=== PATIENT | female | born 1940 | race Caucasian/White ===

== ENCOUNTER 2018-05-20 17:41 | Inpatient (IN) | payer MEDICARE, BC ==
[~2018-05-20] VITALS: Ht 175.3 cm; Wt 77.1 kg
[2018-05-20 18:14] LABS: BASOPHILS % (AUTO) 0.5 % (0.0-2.0); EOSINOPHILS % (AUTO) 0.5 % (0.0-6.0); HEMATOCRIT 44 % (33-45); HEMOGLOBIN 14.8 g/dL (11.5-14.8); LYMPHOCYTES % (AUTO) 11.4 % (20.0-44.0); MEAN CORPUSCULAR HGB CONC 33 g/dl (31.0-36.0); MEAN CORPUSCULAR VOLUME 92 fL (82-100); MONOCYTES # (AUTO) 0.7 /CMM (0.1-1.30); MONOCYTES % (AUTO) 8.1 % (2.0-12.0); NEUTROPHILS # (AUTO) 6.9 /CMM (1.8-8.9); NEUTROPHILS % (AUTO) 79.5 % (43.0-81.0); PLATELET COUNT (AUTO) 199 /CMM (150-450); RED BLOOD CELL COUNT(AUTO) 4.82 MIL/uL (4.0-5.2); WHITE BLOOD COUNT (AUTO) 8.7 K/uL (4.3-11.0)
--- NOTE | 2018-05-20 18:15 | NUR ---
BIBRA39 FROM [facility] FOR MIDSTERNAL CHEST PAIN CHEST PAIN X 2 DAYS NITRO 1 SPRAY GIVEN, PT REFUSED THE ASPIRIN PER REPORT. PT AAOX2, VSS. DENIES CP, SOB, DIZZINESS, N/V @ THIS TIME. PLACED ON HUMAN RESOURCES ASSISTANT MANAGER, SR. PT SEEN & EVAL'D BY DR. HANSEN. WILL CONT TO MONITOR.
[2018-05-20 18:26] LABS: CALCIUM, SERUM 10.2 mg/dL (8.5-10.1); CARBON DIOXIDE 26 mmol/L (21-32); CHLORIDE 109 mmol/L (98-107); CREATININE 1.2 mg/dL (0.6-1.3); GLUCOSE 109 mg/dL (74-106); POTASSIUM 3.3 mmol/L (3.5-5.1); SODIUM SERUM 143 mmol/L (136-145); UREA NITROGEN, BLOOD 30 mg/dL (7-18)
[2018-05-20 18:41] LABS: B-TYPE NATRIURETIC PEPTIDE 556 PG/ML (0-125)
[2018-05-20] MEDS ORDERED: POTASSIUM CHLORIDE 20 MEQ TAB.PRT.SR PO ONE ×3 (18:47→19:00)
--- NOTE | 2018-05-20 19:03 | NUR ---
CALLED [employer] ROVING DEPARTMENT END FINDER WAS PAGED.
--- NOTE | 2018-05-20 19:03 | NUR ---
MEDICATED PER ERMD ORDER. PT ABLE TO SWALLOW CRUSHED MEDS WITHOUT DIFFICULTY. PT STABLE, DENIES CP, SOB, DIZZINESS, N/V @ THIS TIME. FIELD MACHINIST @ BS.
--- NOTE | 2018-05-20 19:04 | NUR ---
CALLED [employer] EXECUTIVE PRODUCER PROMOS WAS PAGED.
--- NOTE | 2018-05-20 19:21 | NUR ---
REPORT REC'D FROM DHIRAJ URBINA FOR FAMILIA.
--- NOTE | 2018-05-20 19:21 | NUR ---
Winnie mosquera in [facility] - 05/20/18 at 1922 by SAVANNAH REPORT ALY FROM DHIRAJ URBINA FOR FAMILIA.
[2018-05-20] MEDS ORDERED: ASPIRIN 81 MG TAB.CHEW PO ONE (20:00)
--- NOTE | 2018-05-20 20:10 | NUR ---
CALLING REPORT TO DHIRAJ SWARTZ - TELE
[2018-05-20] MEDS ORDERED: IV NS 0.9% 1,000 ML IV PRN (20:23)
[2018-05-20] MEDS ORDERED: ACETAMINOPHEN 325 MG TABLET PO PRN (20:30)
[2018-05-20] MEDS ORDERED: ONDANSETRON HCL/PF 4 MG/2 ML VIAL IVP PRN (20:30)
[2018-05-20] MEDS ORDERED: MAG HYDROX/AL HYDROX/SIMETH 30 ML UDC PO PRN (20:30)
[2018-05-20] MEDS ORDERED: Z GUARD REMEDY 2 OZ OINT TP PRN (20:30)
[2018-05-20] MEDS ORDERED: MAGNESIUM HYDROXIDE 30 ML UDC PO PRN (20:30)
[2018-05-20] MEDS ORDERED: MORPHINE SULFATE INJ 2 MG/ML DISP.SYRIN IV PRN (20:30)
[2018-05-20] MEDS ORDERED: HYDROCODONE/APAP 5/325MG 1 EACH TABLET PO PRN (20:30)
[2018-05-20] MEDS ORDERED: ESTR0.5T PO (20:39)
[2018-05-20] MEDS ORDERED: ASPI-605 PO (20:39)
[2018-05-20] MEDS ORDERED: RANI300T4 PO (20:39)
[2018-05-20] MEDS ORDERED: POTA20TA83 PO (20:39)
[2018-05-20] MEDS ORDERED: OMEP20CA10 PO (20:39)
[2018-05-20] MEDS ORDERED: METO25TA6 PO (20:39)
[2018-05-20] MEDS ORDERED: GABA600T12 PO (20:39)
[2018-05-20] MEDS ORDERED: CLOT15CR5 TP (20:39)
[2018-05-20] MEDS ORDERED: BUPR300T54 PO (20:39)
[2018-05-20] MEDS ORDERED: CHOL200026 PO (20:39)
[2018-05-20] MEDS ORDERED: NAPH15DR EACHEYE (20:39)
[2018-05-20] MEDS ORDERED: MEMANTINE PO (20:39)
[2018-05-20] MEDS ORDERED: NITR100C PO (20:39)
[2018-05-20] MEDS ORDERED: TRAM50TA2 PO (20:39)
[2018-05-20] MEDS ORDERED: LORA0.5T PO (20:39)
--- NOTE | 2018-05-20 20:50 | NUR ---
DOCUMENTATION LIAISON OPENING NOTES: RECEIVED PT ON ROOM AIR AND IS TOLERATING WELL. NO SOB NOTED. NO S/S OF DISTRESS. PT NOT VERBALIZING ANY PAIN. WHEN ASKED IF HAVING CHEST PAIN, PT DENIES. PT HAS IV ON L FOREARM#22G AND IS PATENT AND INTACT. PT TO BE STARTED ON IV FLUIDS NS AT 75ML/HR. PT TO BE PLACED ON TELE BOX WELL. BED KEPT IN LOW, LOCKED POSITION, AND SIDE RAILS X 2UP. BED ALARM ACTIVATED. WILL CONTINUE TO MONITOR PT. Addendum: 05/20/18 at 2251 by LUIS ENRIQUE SUÁREZ RN PT ONLY ORIENTED TO NAME AND PLACE.
[2018-05-20 21:00] VITALS: BP 165/71
[2018-05-20] MEDS ORDERED: LORAZEPAM 0.5 MG TABLET PO PRN (21:00)
--- NOTE | 2018-05-20 21:54 | NUR ---
RN NOTES RE: VACCINATION STATUS: NO PAPER WORKS/DOCUMENTATION FROM FACILITY ([facility]) REGARDING FLU VACCINE AND PNEUMOCOCCAL VACCINE. INFORMED ASSIGNED RN TO F/U WITH FACILITY
[2018-05-20] MEDS: ENOXAPARIN SODIUM 40 MG/0.4 ML DISP.SYRIN SQ SCH (21:59)
[2018-05-20] MEDS ORDERED: Medication Not On Formulary EA (Gabapentin 600 MG) PO SCH (22:00)
--- NOTE | 2018-05-20 22:14 | NUR ---
RN NOTES: CONTACTED [facility] SPOKED WITH DHIRAJ SOLITARIO, ASKED ABOUT VACCINATION STATUS, PER DHIRAJ SOLITARIO SHE'S UNSURE AND RECOMMENDS TO CALL IN AM TO F/U DAY RN'S IN THE FACILITY. ALSO DHIRAJ SOLITARIO FAXED A COPY OF PT'S POLST, DATED 01/31/18 AND PER POL PT IS THE POA HERSELF, BUT SINCE PT'S MENTAL STATUS AND CONDITION HAS CHANGED, DHIRAJ SOLITARIO RECOMMENDS TO CALL PT'S BROTHER IN LAW MADDY CASILLAS IN CASE OF ANY EMERGENCY OR MEDICAL DECISION MAKING. MADDY CASILLAS CAN BE REACH AT [phone] (HOME), (CELL). ALL CONVERSATION/COMMUNICATION RELAYED TO ASSIGNED DHIRAJ BALL.
--- NOTE | 2018-05-20 22:16 | NUR ---
RN NOTES: POLST PROVIDED BY FACILITY, ATTACHED TO CHART, BASED ON POLST PT IS DNR, POLST MADE/SIGNED/CREATED LAST 01/31/18, WILL INFORM MD FILLING HAULER WEAVING, PT IS THE POA HERSELF BUT ACCDG TO FACILITY DUE TO PT'S CHANGE IN CONDITION, ITS BEST TO CALL MADDY CASILLAS PT'S BROTHER IN LAW (ALTHOUGH NOT THE PRIMARY/LEGAL DECISION MAKER) IN CASE OF EMERGENCY, AND REASSESSMENT OF THE POLST. METAL TESTER MADE AWARE, PER RECOMMENDATION TO FOLLOW WHAT WAS IN THE POLST AND MADE MD AWARE OF THE EXISTING POLST.
--- NOTE | 2018-05-20 22:18 | NUR ---
RN NOTES: SPOKED WITH ASSIGNED RN LIZZY, ASSIGNED RN WILL NOTIFY TILE CONDUIT LAYER MD REGARDING POLST AND WILL OBTAIN ORDER FOR CODE STATUS.
[2018-05-20] MEDS: GABAPENTIN 300 MG CAPSULE PO SCH ×2 (23:45)
--- NOTE | 2018-05-20 23:47 | NUR ---
FIELD TRAINING AGENT NOTES: GABAPENTIN 600MG LATER ORDER. NON ADMIN 05/20 0000 DOSE PT JUST GOT HERE 05/20 AT 2050PM.
[2018-05-21] VITALS (7 sets, daily range): BP systolic 115–178; BP diastolic 64–87
[2018-05-21] MEDS ORDERED: METOPROLOL TARTRATE 25 MG TABLET PO ONE
--- NOTE | 2018-05-21 02:04 | NUR ---
PUBLIC INFORMATION COORDINATOR NOTES: INFORMED ORGAN TEACHER MEDHAT MILTON THAT HER POLST SAID DNR. PER KATHY MILTON, "THAT'S FINE."
--- NOTE | 2018-05-21 06:41 | NUR ---
RECORDING ARTIST CLOSING NOTES: ALL NEEDS WERE ATTENDED AND ANTICIPATED FOR. PT KEPT CLEAN, DRY, AND COMFORTABLE. NO SOB NOTED. NO S/S OF DISTRESS. PT RESTING IN BED COMFORTABLY AND IS ASLEEP AT THIS TIME. PT NEEDS CONSTANT REORIENTING. PT HAS IV AND IS BEING INFUSED WITH IV NS AT 75ML/HR. BED ALARM ACTIVATED. TELE READING SHOWS SB 53. BED KEPT IN LOW, LOCKED POSITION, AND SIDE RAILS X 2UP. WILL ENDORSE TO AM NURSE FOR FAMILIA. Addendum: 05/21/18 at 0647 by LUIS ENRIQUE SUÁREZ RN PT REFUSING TO HAVE BLOOD DRAWN AT THIS TIME. CEO & FOUNDER WILL COME BACK AT A LATER TIME.
[2018-05-21] MEDS ORDERED: OMEPRAZOLE 20 MG CAPSULE.DR PO SCH (07:30)
--- NOTE | 2018-05-21 07:30 | NUR ---
event representative Opening Note Patient awake, resting in bed. No acute distress, SOB or complaints of chest pain. Alert and oriented x2, able to verbalize needs. Constant reorientation needed. classroom monitor, sinus bradycardia at 47 bpm. Respirations even and unlabored on room air. Aspirations precautions in place. Peripheral IV to the left forearm 22 gauge, intact, patent and infusing NS at 75 mL/hr. Current weight 168 lbs., strict I & Os. Fall and Safety precautions in place: bed in lowest and locked position, bed alarm on, side rails up x2, call light and personal possessions within reach. Oriented to safety measures and use of call light, verbalized understanding. Will continue to monitor and intervene as needed.
[2018-05-21] MEDS: ESTRADIOL 1 MG TABLET PO SCH (08:38)
[2018-05-21] MEDS: NAPHAZOLINE HCL/PHENIR MAL 15 ML BOTTLE EACHEYE SCH (08:38)
[2018-05-21] MEDS: BUPROPION XL 150 MG TAB.ER.24 PO SCH (08:39)
[2018-05-21] MEDS: CHOLECALCIFEROL 1,000 UNIT TABLET (VIT D3) PO SCH (08:39)
[2018-05-21] MEDS: ATORVASTATIN 10 MG TABLET PO SCH (08:39)
[2018-05-21] MEDS: POTASSIUM CHLORIDE 20 MEQ TAB.PRT.SR PO SCH ×3 (08:40→10:00)
[2018-05-21] MEDS: PANTOPRAZOLE 40 MG TABLET.DR PO SCH (08:40)
[2018-05-21] MEDS: ASPIRIN EC 81 MG TABLET.DR PO SCH (08:40)
[2018-05-21] MEDS: METOPROLOL TARTRATE 25 MG TABLET PO SCH ×2 (08:40→17:06)
[2018-05-21] MEDS: CLOTRIMAZOLE/BETAMETASONE DIPROPIONATE 15 GM TUBE TP SCH ×2 (08:41→17:06)
[2018-05-21] MEDS: LOSARTAN POTASSIUM 50 MG TABLET PO SCH ×2 (08:41→21:00)
[2018-05-21] MEDS: MEMANTINE HCL 5 MG TABLET PO SCH ×2 (08:41→17:06)
[2018-05-21] MEDS ORDERED: BUPROPION HCL PO SCH (09:00)
[2018-05-21] MEDS ORDERED: Medication Not On Formulary EA (Estradiol 0.5 MG) PO SCH (09:00)
--- NOTE | 2018-05-21 09:00 | NUR ---
Patient refused breakfast this AM. Encouraged PO intake of water and cranberry juice.
[2018-05-21] MEDS: IV NS 0.9% 1,000 ML IV PRN ×2 (09:23→17:16)
--- NOTE | 2018-05-21 13:00 | NUR ---
Patient refused lab blood draw. Educated patient about risks and benefits regarding blood work and lab; refused three time. Will attempt again later this afternoon.
--- NOTE | 2018-05-21 16:00 | NUR ---
Patient refusing to be turned and repositioned per protocol for skin integrity and limb offloading. Educated patient verbally three times regarding risks and benefits of repositioning for to maintain skin, patient able to tolerate some turning. Refused every 2 hours but turned and repositioned as tolerated. Left side is painful for her. Will endorse to linen supervisor.
[2018-05-21] MEDS ORDERED: hydrALAZINE HCL 25 MG TABLET PO PRN (16:30)
--- NOTE | 2018-05-21 18:15 | NUR ---
MS RN Opening Note Patient asleep, resting in bed. No acute distress, SOB or complaints of chest pain. Alert and oriented x 1-2, able to verbalize needs. Constant reorientation needed. Respirations even and unlabored on room air. Aspirations precautions in place. Peripheral IV to the left forearm 22 gauge, intact, patent and infusing NS at 125 mL/hr. Current weight 168 lbs., strict I & Os. Urine x3, BM x 1 this shift. Fall and Safety precautions in place: bed in lowest and locked position, bed alarm on, side rails up x2, call light and personal possessions within reach. Oriented to safety measures and use of call light, verbalized understanding and demonstrated use. Will endorse to police shift commander RN for continuity of care.
--- NOTE | 2018-05-21 19:00 | NUR ---
MS/RN OPENING NOTES PT RECEIVED ASLEEP, OPENS EYES TO NAME/LIGHT TOUCH. ON ROOM AIR, BREATHING EVEN AND UNLABORED. NON VERBAL AT THIS TIME, NODS TO YES/NO QUESTIONS. IV TO LFA PATENT AND INTACT RUNNING IVF ORDERED. HOB ELEVATED. BED IN LOW/LOCKED POSITION WITH CALL LIGHT IN REACH, UPPER SIDE RAILS IN PLACE. WILL CONTINUE TO MONITOR
[2018-05-21] MEDS: ENOXAPARIN SODIUM 40 MG/0.4 ML DISP.SYRIN SQ SCH (20:30)
--- NOTE | 2018-05-21 20:41 | NUR ---
MS/RN NOTES PT POSITIVE FOR MRSA NARES. MOVED TO ROOM 329 IN STABLE. ON ISOLATION PRECAUTIONS. PT REFUSING LAB DRAW DESPITE EDUCATION RISKS/BENEFITS X3. ASKED IF WE CAN TRY AGAIN IN AN HOUR, PT NODDED HEAD NO. ASKED IF WE COULD DRAW LAB IN THE MORNING, PT NODDED YES.
[2018-05-21] MEDS ORDERED: FAMOTIDINE (20 MG) 20 MG TABLET PO SCH (21:00)
[2018-05-21] MEDS: GABAPENTIN 300 MG CAPSULE PO SCH (21:24)
--- NOTE | 2018-05-21 21:31 | NUR ---
MS/RN NOTES PT REFUSED LOVENOX DESPITE EDUCATION OF RISKS/BENEFITS X3. KEEPS STATING SHE "DOES NOT WANT IT". LOSARTAN HELD, BP 127/66, HR 48. GABAPENTIN ADMINISTERED ORDERED
[2018-05-22] MEDS: IV NS 0.9% 1,000 ML IV PRN ×2 (04:27→18:31)
--- NOTE | 2018-05-22 06:45 | NUR ---
MS/RN CLOSING NOTES PT WITH HOB ELEVATED. A/OX2. WITH EYES OPEN. ON ROOM AIR, BREATHING EVEN AND UNLABORED. NO S/S OF SOB OR PAIN AT THIS TIME. IV TO LFA PATENT AND INTACT RUNNING IVF ORDERED. TURNED/REPOSITIONED Q2H. HEELS OFFLOADED. ALL NEEDS MET. PT REFUSED LAB DRAW THIS AM DESPITE EDUCATION X3. REFUSED SOME MEDICATIONS LAST NIGHT. NO C/O CHEST PAIN, N/V OR SOB DURING SHIFT. BED REMAINS IN LOW/LOCKED POSITION WITH CALL LIGHT IN REACH, UPPER SIDE RAILS IN PLACE. NO SIGNIFICANT CHANGES OVERNIGHT. KEPT COMFORTABLE. ASPIRATION AND ISOLATION PRECAUTIONS IMPLEMENTED. WILL ENDORSE TO DAY SHIFT RN
--- NOTE | 2018-05-22 07:10 | NUR ---
MS/RN OPENING NOTE THE PATIENT IS RECEIVED AWAKE IN BED. ALERT AND ORIENTED TO SELF AND PLACE. REORIENTATION PROVIDED. THE PATIENT DENIES PAIN AT THIS TIME. IN ROOM AIR AND DENIES SOB. RESPIRATION REGULAR AND UNLABORED. LFA G 22 PATENT AND NORMAL SALINE INFUSING AT 125L/HR. NO S/S INFILTRATION NOTED. BED LOW AND LOCKED. SIDE RAILS UP X3. CALL LIGHT WITHIN REACH. WILL CONTINUE TO MONITOR.
[2018-05-22 08:00] VITALS: BP 115/66
[2018-05-22] MEDS: ATORVASTATIN 10 MG TABLET PO SCH (08:31)
[2018-05-22] MEDS: PANTOPRAZOLE 40 MG TABLET.DR PO SCH (08:31)
[2018-05-22] MEDS: MEMANTINE HCL 5 MG TABLET PO SCH ×2 (08:31→17:12)
[2018-05-22] MEDS: BUPROPION XL 150 MG TAB.ER.24 PO SCH (08:31)
[2018-05-22] MEDS: LOSARTAN POTASSIUM 50 MG TABLET PO SCH ×2 (08:32→21:25)
[2018-05-22] MEDS: METOPROLOL TARTRATE 25 MG TABLET PO SCH ×2 (08:32→17:12)
[2018-05-22] MEDS: CHOLECALCIFEROL 1,000 UNIT TABLET (VIT D3) PO SCH (08:33)
[2018-05-22] MEDS: ASPIRIN EC 81 MG TABLET.DR PO SCH (08:33)
[2018-05-22] MEDS: ESTRADIOL 1 MG TABLET PO SCH (08:34)
[2018-05-22] MEDS: CLOTRIMAZOLE/BETAMETASONE DIPROPIONATE 15 GM TUBE TP SCH ×2 (10:22→17:13)
[2018-05-22] MEDS: NAPHAZOLINE HCL/PHENIR MAL 15 ML BOTTLE EACHEYE SCH (10:22)
[2018-05-22] MEDS: MUPIROCIN OINT 2% 22 GM TUBE SCH ×2 (10:54→21:27)
[2018-05-22] MEDS ORDERED: MUPI1OIN BNOSTRILS (14:49)
[2018-05-22 16:00] VITALS: BP 148/77
--- NOTE | 2018-05-22 18:16 | NUR ---
MS/RN CLOSING NOTE THE PATIENT ALERT AND ORIENTED X2. IN ROOM AIR AND OXYGEN SATURATION IS AT 96%. DENIES SOB. DENIES PAIN. LFA G 22 PATENT AND NORMAL SALINE INFUSING AT 125ML/HR. NO S/S INFILTRATION NOTED. PATIENT INCONTINENT. GOOD AND GENTLE CARE PROVIDED. TURNED AND REPOSITIONED. BED LOW AND LOCKED. SIDE RAILS UP X3. CALL LIGHT WITHIN REACH. WILL ENDORSE TO CUTTER HAND.
--- NOTE | 2018-05-22 19:30 | NUR ---
RN MS OPENING NOTES RECEIVED PATIENT IN BED AWAKE, ALERT AND ORIENTED X2, VERBALLY RESPONSIVE, ABLE TO MAKE NEEDS KNOWN. BREATHING EVEN AND UNLABORED. NO SOB NOTED.TOLERATING ROOM AIR. DENIES AND PAIN OR DISCOMFORT. NO FACIAL GRIMACING. IV ON LEFT FOREARM INTACT AND PATENT. SKIN DRY AND WARM TO TOUCH. ALL OTHER NEEDS ATTENDED TO. ISOLATION IN PLACE FOR MRSA OF THE NARES. SAFETY MEASURES IN PLACE. CALL LIGHT WITHIN REACH. WILL CONTINUE TO MONITOR.
[2018-05-22 20:49] VITALS: BP 145/66
[2018-05-22] MEDS: GABAPENTIN 300 MG CAPSULE PO SCH (21:25)
[2018-05-22] MEDS: ENOXAPARIN SODIUM 40 MG/0.4 ML DISP.SYRIN SQ SCH (21:26)
--- NOTE | 2018-05-23 06:25 | NUR ---
RN MS NOTES PATIENT REFUSED BLOOD DRAW. EXPLAINED RISKS AND BENEFITS BUT STILL REFUSED. PER PATIENT IT GIVES HER A LOT OF PAIN. OFFERED TO GIVE PAIN MEDICATION AFTERWARDS BUT PATIENT STILL REFUSED. WILL CONTINUE TO MONITOR.
--- NOTE | 2018-05-23 06:28 | NUR ---
RN MS CLOSING NOTES PATIENT RESTING IN BED. NO ACUTE CHANGES THROUGHOUT SHIFT. BREATHING EVEN AND UNLABORED. NO SOB NOTED. TOLERATING ROOM AIR. NO COMPLAINTS OF PAIN OR DISCOMFORT. NO FACIAL GRIMACING. IV ON LEFT FOREARM INTACT AND PATENT. SKIN DRY AND WARM TO TOUCH. KEPT CLEAN DRY AND COMFORTABLE. ALL OTHER NEEDS ATTENDED TO. ISOLATION IN PLACE FOR MRSA OF THE NARES. SAFETY MEASURES IN PLACE. CALL LIGHT WITHIN REACH. WILL ENDORSE TO ONCOMING NURSE FOR CONTINUITY OF CARE.
--- NOTE | 2018-05-23 07:36 | NUR ---
RN OPENING NOTES PT WAS RECEIVED IN BED AT LOWEST AND LOCKED POSITION WITH SIDE RAILS UP X2, A/O X2, BREATHING EVEN AND UNLABORED ON RA, NO S/S OF PAIN OR DISTRESS CURRENTLY NOTED, WAS INFORMED BY BRAND STRATEGY MANAGER RN THAT PT REFUSED BLOOD DRAW, IV IS PATENT AND INTACT, SAFETY PRECAUTIONS IN PLACE, CALL LIGHT WITHIN REACH, WILL MONITOR ACCORDINGLY
[2018-05-23 08:00] VITALS: BP 155/90
[2018-05-23] MEDS: ASPIRIN EC 81 MG TABLET.DR PO SCH (08:36)
[2018-05-23] MEDS: ATORVASTATIN 10 MG TABLET PO SCH (08:36)
[2018-05-23] MEDS: CHOLECALCIFEROL 1,000 UNIT TABLET (VIT D3) PO SCH (08:36)
[2018-05-23] MEDS: BUPROPION XL 150 MG TAB.ER.24 PO SCH (08:36)
[2018-05-23] MEDS: MEMANTINE HCL 5 MG TABLET PO SCH (08:36)
[2018-05-23] MEDS: LOSARTAN POTASSIUM 50 MG TABLET PO SCH (08:37)
[2018-05-23] MEDS: METOPROLOL TARTRATE 25 MG TABLET PO SCH (08:37)
[2018-05-23] MEDS: PANTOPRAZOLE 40 MG TABLET.DR PO SCH (08:41)
[2018-05-23] MEDS: ESTRADIOL 1 MG TABLET PO SCH (08:41)
[2018-05-23] MEDS: CLOTRIMAZOLE/BETAMETASONE DIPROPIONATE 15 GM TUBE TP SCH (08:49)
[2018-05-23] MEDS: NAPHAZOLINE HCL/PHENIR MAL 15 ML BOTTLE EACHEYE SCH (08:49)
[2018-05-23] MEDS: MUPIROCIN OINT 2% 22 GM TUBE SCH (08:50)
--- NOTE | 2018-05-23 11:52 | NUR ---
RN NOTES [facility] WAS CALLED AT THIS TIME IN ORDER TO GIVE REPORT, THE NURSE WAS NOT AVAILABLE AT THAT TIME SO THEY SAID SHE WOULD CALL BACK LATER
--- NOTE | 2018-05-23 12:08 | NUR ---
RN NOTES REPORT GIVEN TO LUCILLE AT [facility] AT THIS TIME
--- NOTE | 2018-05-23 12:19 | NUR ---
WOUND CARE CONSULT: PT PRESENTS WITH INCONTINENCE AND RED RASH TO GROIN, PERINEAL AREAS, PRESENT ON ADMISSION. RECOMMENDATIONS MADE FOR SKIN PROTECTION AND CARE. DISCUSSED WITH NURSING STAFF. CURRENT LOLI SCORE IS 14. WILL SEE PRN. AVALOS IN AGREEMENT WITH PLAN OF CARE. Addendum: 05/23/18 at 1221 by JULIA TUTTLE WNDNU Amended: Links added.
[2018-05-23 14:39] VITALS: BP 163/83
--- NOTE | 2018-05-23 15:05 | NUR ---
DISCHARGE NOTES PT AT THIS TIME WAS TAKEN BY EMT TO [facility] VIA AMBULANCE IN MEDICALLY STABLE CONDITION, REPORT WAS GIVEN TO LUCILLE AT [facility] AND EMT, IV AND ID BAND WERE REMOVED, D/C PAPERWORK AND BELONGINGS WERE SIGNED, BELONGINGS WERE HANDED TO EMT. ALL PAPERWORK AND EXITCARE WAS DISCUSSED AND PROVIDED. SJKIN DOCUMENTATION WAS DONE AND NOTED. ALL NEEDS WERE ATTENDED TO DURING THEIR STAY. ETA 15 MIN
[2018-05-23] MEDS ORDERED: CLOTRIMAZOLE 1% 15 GM TUBE TP SCH (17:00)
== END 2018-05-23 15:00 | DRG 391 ==
LOC: ER 17:45 → TELE 20:20 → MED 05-21 08:36
PROVIDERS: ADMIT Nurse Practitioner Acute Care; ATTEND Internal Medicine
DX: K21.9 Gastro-esophageal reflux disease without esophagitis (principal); N17.0 Acute kidney failure with tubular necrosis; I69.359 Hemiplegia and hemiparesis following cerebral infarction affecting unspecified side; E87.6 Hypokalemia; E83.52 Hypercalcemia; I10 Essential (primary) hypertension; F32.9 Major depressive disorder, single episode, unspecified; F03.90 Unspecified dementia, unspecified severity, without behavioral disturbance, psychotic disturbance, mood disturbance, and anxiety
CPT/HCPCS: 36415; 71045-TC; 80048-TC; 83880; 84484-TC; 85025-TC; 85730-TC; 87081-TC; 93307-TC; G0378; J1650; J2405; J7030

== ENCOUNTER → 2018-11-09 | Emergency (ER) | payer MEDICARE, BC ==
[~2018-11-09] VITALS: Ht 165.1 cm; Wt 86.2 kg
[~2018-11-09] MED LIST: ASPI-605 PO; BISACODYL SUPP (10 MG) 10 MG/SUPP.RECT SUPP.RECT RC ONE; BUPR300T54 PO; CHOL200026 PO; CLOT15CR5 TP; CT SWABBABLE VALVE TRANS SET 1 EA INFUS.SET MC ONE; ESTR0.5T PO; GABA600T12 PO; IOHEXOL-300 100 ML VIAL IV ONE; IV NS 0.9% 1,000 ML BAG IV ONE; IV NS 0.9% 250 ML IV ONE; LIDOCAINE VISCOUS 2% UD 15 ML UDC MM ONE; LIDOCAINE VISCOUS 2% UD 15 ML UDC ONE; LORA0.5T PO; MAGNESIUM CITRATE 296 ML BOTTLE ONE; MAGNESIUM CITRATE 296 ML BOTTLE PO ONE; MEMANTINE PO; METO25TA6 PO; MORPHINE SULFATE INJ 2 MG/ML DISP.SYRIN IV ONE; MORPHINE SULFATE INJ 4 MG/ML DISP.SYRIN ONE; MUPI1OIN BNOSTRILS; NAPH15DR EACHEYE; NITR100C PO; OMEP20CA11 PO; POTA20TA83 PO; RANI300T4 PO; TRAM50TA2 PO
--- NOTE | 2018-11-09 09:30 | NUR ---
BIBRA39 FRM FAY C/O RECTAL PAIN SINCE YESTERDAY. , CONSTIPATED PER EMS REPORT. TO ER BED 5, HOOKED TO MONITOR, CHANGED TO GOWN, PROVIDED W WARM BLANKET, PT AOX2 , NOT IN DISTRESS, CAREGIVER AT BEDSIDE, AWAITING MD FERRERA
--- NOTE | 2018-11-09 09:37 | NUR ---
DR GOETZ AT BEDSIDE
[2018-11-09 10:09] LABS: BASOPHILS # (AUTO) 0.1 /CMM (0.0-0.2); BASOPHILS % (AUTO) 0.5 % (0.0-2.0); EOSINOPHILS % (AUTO) 0.9 % (0.0-6.0); HEMATOCRIT 44 % (33-45); HEMOGLOBIN 14.5 g/dL (11.5-14.8); LYMPHOCYTES # (AUTO) 1.2 /CMM (0.8-4.8); MEAN CORPUSCULAR HGB CONC 33 g/dl (31.0-36.0); MEAN CORPUSCULAR VOLUME 95 fL (82-100); MONOCYTES % (AUTO) 8.1 % (2.0-12.0); NEUTROPHILS # (AUTO) 9.6 /CMM (1.8-8.9); NEUTROPHILS % (AUTO) 80.5 % (43.0-81.0); PLATELET COUNT (AUTO) 169 /CMM (150-450); RED BLOOD CELL COUNT(AUTO) 4.63 MIL/uL (4.0-5.2); WHITE BLOOD COUNT (AUTO) 11.9 K/uL (4.3-11.0)
[2018-11-09 10:19] LABS: CARBON DIOXIDE 22 mmol/L (21-32); CHLORIDE 109 mmol/L (98-107); CREATININE 1.3 mg/dL (0.6-1.3); GLUCOSE 98 mg/dL (74-106); POTASSIUM 3.9 mmol/L (3.5-5.1); SODIUM SERUM 142 mmol/L (136-145); UREA NITROGEN, BLOOD 32 mg/dL (7-18)
[2018-11-09 10:26] LABS: ALANINE AMINOTRANSFERASE 27 U/L (12-78); ALKALINE PHOSPHATASE 90 U/L (46-116); ASPARTATE AMINOTRANSFERASE 14 U/L (15-37); BILIRUBIN,DIRECT 0.1 mg/dL (0.0-0.2); BILIRUBIN,TOTAL 0.5 mg/dL (0.2-1.0); CALCIUM, SERUM 9.7 mg/dL (8.5-10.1); LIPASE 133 U/L (73-393); TOTAL PROTEIN, SERUM 6.3 g/dL (6.4-8.2)
--- NOTE | 2018-11-09 11:48 | NUR ---
PT NOT ABLE TO DEFACATE. MADE MD AWARE. WILL CONTINUE TO MONITOR.
--- NOTE | 2018-11-09 14:36 | NUR ---
PT NOT ABLE TO DEFACATE. MADE MD AWARE. WILL CONTINUE TO MONITOR.
--- NOTE | 2018-11-09 14:54 | NUR ---
RECEIVED VERBAL ORDER FROM DR GOETZ FOR LIDOCAINE 2% VISCOUS TO APPLY AT ANUS AREA AND MORPHINE 4MG IVP FOR MANUAL FECAL DISIMPACTION.
--- NOTE | 2018-11-09 15:05 | NUR ---
DR WIGGINS AT BEDSIDE FOR MANUAL FECAL DISIMPACTION.
[2018-11-09 15:13] VITALS: BP 139/98
--- NOTE | 2018-11-09 15:18 | NUR ---
REPORT GIVEN TO LAYA HEARN OF [facility]
--- NOTE | 2018-11-09 15:25 | NUR ---
SPOKE TO AYAH FROM [facility], S TRANSPORT ARRANGED WITH AN ETA OF 1700, TRIP NUMBER [id number].
--- NOTE | 2018-11-09 17:18 | NUR ---
IV removed. Catheter intact and site benign. Pressure and 4x4 applied to site. No bleeding noted. Patient discharged to AMBUL[facility] UNIT 312 in stable condition GOING TO [facility]. CAREGIVER AT BEDSIDE. Written and verbal after care instructions given. Patient AND EMT verbalizes understanding of instruction.
== END | disposition home or self-care (01) ==
LOC: ER 09:27
DX: K56.41 Fecal impaction (principal); I10 Essential (primary) hypertension; E78.00 Pure hypercholesterolemia, unspecified; K21.9 Gastro-esophageal reflux disease without esophagitis; F03.90 Unspecified dementia, unspecified severity, without behavioral disturbance, psychotic disturbance, mood disturbance, and anxiety; Z86.73 Personal history of transient ischemic attack (TIA), and cerebral infarction without residual deficits; Z90.89 Acquired absence of other organs; Z90.710 Acquired absence of both cervix and uterus; Z88.0 Allergy status to penicillin; Z88.2 Allergy status to sulfonamides; Z88.1 Allergy status to other antibiotic agents; Z88.8 Allergy status to other drugs, medicaments and biological substances; Z79.899 Other long term (current) drug therapy; Z79.82 Long term (current) use of aspirin
CPT/HCPCS: 36415; 74176; 80048; 80076; 83605 ×2; 83690; 85025; 96374; 99284; J2270; J7030; J7050; Q9967

== ENCOUNTER 2019-01-03 11:46 | Inpatient (IN) | payer MEDICARE, BC ==
[~2019-01-03] VITALS: Ht 167.6 cm; Wt 82.6 kg
[~2019-01-03 11:46] MED LIST changes: -BISACODYL SUPP (10 MG) 10 MG/SUPP.RECT SUPP.RECT RC ONE; -CT SWABBABLE VALVE TRANS SET 1 EA INFUS.SET MC ONE; -IOHEXOL-300 100 ML VIAL IV ONE; -IV NS 0.9% 1,000 ML BAG IV ONE; -IV NS 0.9% 250 ML IV ONE; -LIDOCAINE VISCOUS 2% UD 15 ML UDC MM ONE; -LIDOCAINE VISCOUS 2% UD 15 ML UDC ONE; -MAGNESIUM CITRATE 296 ML BOTTLE ONE; -MAGNESIUM CITRATE 296 ML BOTTLE PO ONE; -MORPHINE SULFATE INJ 2 MG/ML DISP.SYRIN IV ONE; -MORPHINE SULFATE INJ 4 MG/ML DISP.SYRIN ONE
--- NOTE | 2019-01-03 12:00 | NUR ---
WILMA MATTSON [address] [facility], "TROWING UP BLOOD SINCE YESTERDAY". TO ER BED 8, PATIENT AOx4, BREATHING EVEN AND UNLABORED, HOOKED TO MONITOR, NOTED TACHYCARDIA AT 126BPM, CHANGED TO GOWN, PROVIDED W WARM BLANKET, AWAITING MD FERRERA
--- NOTE | 2019-01-03 12:02 | NUR ---
DR ROMERO AT BEDSIDE
[2019-01-03] MEDS ORDERED: ONDANSETRON HCL/PF 4 MG/2 ML VIAL ONE (12:15)
[2019-01-03 12:16] LABS: BASOPHILS % (AUTO) 0.1 % (0.0-2.0); HEMATOCRIT 49 % (33-45); HEMOGLOBIN 16.3 g/dL (11.5-14.8); LYMPHOCYTES # (AUTO) 0.6 /CMM (0.8-4.8); LYMPHOCYTES % (AUTO) 5.6 % (20.0-44.0); MEAN CORPUSCULAR HGB CONC 33 g/dl (31.0-36.0); MEAN CORPUSCULAR VOLUME 92 fL (82-100); MONOCYTES # (AUTO) 0.7 /CMM (0.1-1.30); NEUTROPHILS # (AUTO) 10.1 /CMM (1.8-8.9); NEUTROPHILS % (AUTO) 88.3 % (43.0-81.0); PLATELET COUNT (AUTO) 225 /CMM (150-450); WHITE BLOOD COUNT (AUTO) 11.4 K/uL (4.3-11.0)
[2019-01-03 12:22] LABS: CALCIUM, SERUM 10.2 mg/dL (8.5-10.1); CARBON DIOXIDE 25 mmol/L (21-32); CHLORIDE 103 mmol/L (98-107); CREATININE 1.7 mg/dL (0.6-1.3); GLUCOSE 155 mg/dL (74-106); POTASSIUM 3.9 mmol/L (3.5-5.1); SODIUM SERUM 143 mmol/L (136-145); UREA NITROGEN, BLOOD 38 mg/dL (7-18)
[2019-01-03 12:28] LABS: ALANINE AMINOTRANSFERASE 24 U/L (12-78); ALBUMIN 3.2 g/dL (3.4-5.0); ALKALINE PHOSPHATASE 90 U/L (46-116); ASPARTATE AMINOTRANSFERASE 14 U/L (15-37); BILIRUBIN,DIRECT 0.2 mg/dL (0.0-0.2); BILIRUBIN,TOTAL 0.8 mg/dL (0.2-1.0); LIPASE 73 U/L (73-393); TOTAL PROTEIN, SERUM 6.8 g/dL (6.4-8.2)
[2019-01-03] MEDS ORDERED: IV NS 0.9% 1,000 ML BAG IV ONE ×2 (12:30→13:00)
[2019-01-03] MEDS ORDERED: ONDANSETRON HCL/PF 4 MG/2 ML VIAL IVP ONE (12:30)
[2019-01-03] MEDS ORDERED: BENZ-13 PO (12:51)
[2019-01-03] MEDS ORDERED: BISM262T14 PO (12:51)
[2019-01-03] MEDS ORDERED: LORA0.5T PO (12:51)
[2019-01-03] MEDS ORDERED: LOSA1TAB39 PO (12:51)
[2019-01-03] MEDS ORDERED: TEMA15CA PO (12:51)
[2019-01-03] MEDS ORDERED: NA P133E RC (12:51)
[2019-01-03] MEDS ORDERED: CLON0.1T PO (12:51)
[2019-01-03] MEDS ORDERED: ATOR40TA PO (12:51)
[2019-01-03] MEDS ORDERED: TRAM50TA2 PO (12:51)
[2019-01-03] MEDS ORDERED: CEFEPIME 1 GM in IV D5W 50 ML IV ONE (13:00)
[2019-01-03] MEDS ORDERED: VANCOMYCIN 1 GM in IV D5W 250 ML IV ONE (13:00)
--- NOTE | 2019-01-03 13:10 | NUR ---
VERIFIED W DR ROMERO OF MAXIPIME ORDER PATIENT IS ALLERGIC TO PENICILLIN, SAID IT IS OK TO CONTINUE GIVING MAXIPIME. PHARMACY MADE AWARE
--- NOTE | 2019-01-03 13:16 | NUR ---
GRACE BOYD DNP AT BEDSIDE
[2019-01-03] MEDS ORDERED: IV NS 0.9% 1,000 ML IV PRN (13:18)
[2019-01-03 13:20] LABS: B-TYPE NATRIURETIC PEPTIDE 1403 PG/ML (0-125)
[2019-01-03] MEDS ORDERED: MORPHINE SULFATE INJ 2 MG/ML DISP.SYRIN IV PRN (13:30)
[2019-01-03] MEDS ORDERED: MAG HYDROX/AL HYDROX/SIMETH 30 ML UDC PO PRN (13:30)
[2019-01-03] MEDS ORDERED: TEMAZEPAM 15 MG CAPSULE PO PRN (13:30)
[2019-01-03] MEDS ORDERED: MAGNESIUM HYDROXIDE 30 ML UDC PO PRN (13:30)
[2019-01-03] MEDS ORDERED: ACETAMINOPHEN 325 MG TABLET PO PRN (13:30)
--- NOTE | 2019-01-03 13:35 | NUR ---
URINE SAMPLE COLLECTED VIA STRAIGHT CATH AND SENT TO LAB
[2019-01-03 13:38] LABS: APPEARANCE,URINE Clear (CLEAR); BILIRUBIN,URINE Negative (NEGATIVE); BLOOD, URINE Negative Ery/uL (NEGATIVE); COLOR,URINE Yellow (YELLOW); KETONES,URINE Negative (NEGATIVE); LEUKOCYTE ESTERASE ,URINE Negative (NEGATIVE); NITRITE, URINE Negative (NEGATIVE); PROTEIN,URINE Negative (NEGATIVE); UGLUCOSE Negative (NEGATIVE); UROBILINOGEN,URINE 0.2 EU/dL (0.2)
--- NOTE | 2019-01-03 14:20 | NUR ---
REPORT GIVEN TO RALPH HEARN OF TELE UNIT
[2019-01-03 16:00] VITALS: BP 135/74
--- NOTE | 2019-01-03 16:00 | NUR ---
FABRIC MACHINE OPERATOR NOTES RECEIVED PATIENT FROM ER A/O X3 MED/SURGE ON Dx OF PNEUMONIA, WITH NAUSEA/VOMITING, AND COUGH. PATIENT HAS NO ACUTE RESPIRATORY DISTRESS, REFUSED PAIN, COUGHING,NAUSEA/ VOMIT X1 WITH GREENISH COLOR SMALL. V/S TAKEN BP-135/74, P-100, T-98.5 ,R-22, O2-97 ROOM AIR. SKIN ASSESSMENT DONE INTACT, IV ACCESS ON RIGHT HAND. PATIENT CONTINENT. KEEP PATIENT NPO, AND HEAD OF BED ELEVATED FOR ASPIRATION PRECAUTION. BELONGING CHECKED, GRACE DNP AWARE OF NEW PATIENT AND MEDICATION. CALL LIGHT WITHIN TO REACH, CONTINUED MONITORING.
[2019-01-03 16:06] VITALS: BP 135/74
[2019-01-03 16:29] VITALS: BP 138/80
[2019-01-03] MEDS: IV NS 0.9% 1,000 ML IV PRN (17:57)
--- NOTE | 2019-01-03 18:03 | NUR ---
RN NOTES RECEIVED CALL FROM LAB FOR RESULT OF LACTIC ACID LEVEL 3.O. NOTIFIED GRACE DNP AND GET STAT ORDER X1 500 ML NS BOLUS, ORDER TAKEN AND CARRIED OUT.
--- NOTE | 2019-01-03 18:20 | NUR ---
RN NOTES ADMINISTERED NS 500 ML/HR BLOUSE AT THIS TIME, PATIENT NPO, PATIENT WAS COMPLAINING OF HEADACHE BUT REFUSED MEDICATION INTAKE. CONTINUED MONITORING.
--- NOTE | 2019-01-03 18:27 | NUR ---
RN NOTES GET CALL FROM GI SPECIALIST Dr CASTELLON AND GET ORDER CLEAR LIQUID DIET AT THIS TIME. PER MD WILL FOLLOW PATIENT IN THE MORNING. ORDER TAKEN AND CARRIED OUT.
[2019-01-03] MEDS ORDERED: IV NS 0.9% 500 ML IV ONE (18:30)
[2019-01-03] MEDS: ONDANSETRON HCL/PF 4 MG/2 ML VIAL IVP PRN (18:35)
--- NOTE | 2019-01-03 18:35 | NUR ---
RN NOTES ADMINISTERED ZOFRAN 4 MG/ML IV PUSH FOR NAUSEA. ENDORSED ONCOMING NURSE FOLLOW PLAN OF CARE.
--- NOTE | 2019-01-03 19:30 | NUR ---
MS RN OPENING NOTE RECEIVED PATIENT IN BED. A/O X2-3. RESPIRATIONS ARE EVEN AND UNLABORED. NO SIGNS OF SOB. PATIENT COMPLAINTS OF HEADACHE BUT IS REFUSING TYLENOL. DENIES ANY OTHER PAIN. IV ACCESS IN RIGHT HAND GAUGE 20 RUNNING NS@100ML/HR. BED IS LOW AND LOCKED, HOB IN HIGH FOWLERS, SIDE RAILS UP X2. WILL CONTINUE TO MONITOR.
[2019-01-03 20:00] VITALS: BP 121/72
--- NOTE | 2019-01-03 20:05 | NUR ---
MS RN NOTE 1999 VITAL SIGNS SHOW OXYGEN SAT 91%. PLACED PATIENT ON OXYGEN 2L/MIN. OXYGEN SAT IS NOW 96%. WILL CONTINUE TO MONITOR.
[2019-01-03] MEDS: NEXIUM 40 MG VIAL IV SCH (21:00)
--- NOTE | 2019-01-04 06:10 | NUR ---
MS RN NOTE PATIENT IS REFUSING AM LABS. DESPITE TELLING THE PATIENT RISK AND BENEFITS SHE STILL REFUSED.
--- NOTE | 2019-01-04 06:33 | NUR ---
MS RN CLOSING NOTE PATIENT IS RESTING IN BED. A/O X2-3. PATIENT IS ON OXYGEN 2L/MIN D/T O2 SAT 91%, O2 SAT NOW AT 95%. RESPIRATIONS ARE EVEN AND UNLABORED. NO SIGNS OF SOB. NO COMPLAINTS OF PAIN THROUGHOUT SHIFT. IV ACCESS MAINTAINED IN RIGHT HAND GAUGE 20 RUNNING NS@100ML/HR. SKIN KEPT CLEAN AND DRY. ALL NURSING NEEDS MET. NO DISTRESS NOTED THROUGHOUT SHIFT. BED IS LOW AND LOCKED, HOB IN HIGH FOWLERS, SIDE RAILS UP X2. WILL ENDORSE TO NEXT SHIFT FOR FAMILIA.
[2019-01-04] MEDS: IV NS 0.9% 1,000 ML IV PRN ×2 (06:49→18:48)
[2019-01-04 08:31] VITALS: BP 108/38
[2019-01-04] MEDS: NEXIUM 40 MG VIAL IV SCH ×2 (10:45→20:25)
[2019-01-04] MEDS: ONDANSETRON HCL/PF 4 MG/2 ML VIAL IVP PRN (13:12)
[2019-01-04] MEDS: CEFEPIME 1 GM in IV D5W 50 ML IV SCH (13:21)
[2019-01-04 16:00] VITALS: BP 136/65
--- NOTE | 2019-01-04 19:30 | NUR ---
MS RN OPENING NOTE RECEIVED PATIENT IN BED. A/O X2. PATIENT ON OXYGEN RUNNING AT 2L/HR VIA NASAL CANNULA. RESPIRATIONS ARE EVEN AND UNLABORED. NO SIGNS OF SOB. DENIES PAIN AT THIS TIME. IV ACCESS IN RIGHT HAND GAUGE 20 RUNNING NS@100ML/HR. BED IS LOW AND LOCKED, HOB IN HIGH FOWLERS, SIDE RAILS UP X2. WILL CONTINUE TO MONITOR.
[2019-01-04 20:00] VITALS: BP_SYST 135; BP_SYST 138; BP_DIAS 75
[2019-01-05] MEDS: ONDANSETRON HCL/PF 4 MG/2 ML VIAL IVP PRN ×3 (01:34→14:04)
--- NOTE | 2019-01-05 01:35 | NUR ---
MS RN NOTE 0134 ADMINISTERED PRN ZOFRAN 4MG PER PATIENTS REQUEST D/T FEELING NAUSEOUS. WILL MONITOR.
--- NOTE | 2019-01-05 06:19 | NUR ---
MS RN NOTE PATIENT IS REFUSING AM LABS. DESPITE EXPLAINING THE RISKS AND BENEFITS THE PATIENT STILL REFUSED. THE LAB WILL SEND SOMEONE AGAIN AT 0900. WILL ENDORSE TO NEXT SHIFT.
--- NOTE | 2019-01-05 06:31 | NUR ---
MS RN CLOSING NOTE PATIENT IS RESTING IN BED. A/O X2. PATIENT ON OXYGEN RUNNING AT 2L/HR VIA NASAL CANNULA. RESPIRATIONS ARE EVEN AND UNLABORED. NO SIGNS OF SOB NOTED THROUGHOUT SHIFT. NO COMPLAINTS OF PAIN THROUGHOUT SHIFT. IV ACCESS MAINTAINED IN RIGHT HAND GAUGE 20 RUNNING NS@100ML/HR. TURNED PATIENT Q2HR AND OFFLOADED. BED IS LOW AND LOCKED, HOB IS ELEVATED 30 DEGREES, SIDE RAILS UP X2. WILL ENDORSE TO NEXT SHIFT FOR FAMILIA.
[2019-01-05] MEDS: IV NS 0.9% 1,000 ML IV PRN ×2 (06:57→21:06)
--- NOTE | 2019-01-05 07:30 | NUR ---
MS RN OPENING NOTE RECEIVED PT IN BED, ALERT AND ORIENTED X2-3, DENIES CHEST PAIN, SOB, STATES SHE HAS "SOME NAUSEA" AT THIS TIME. BREATHING IS EVEN AND UNLABORED ON 2L NC, NO ACUTE DISTRESS NOTED AT THIS TIME. RIGHT HAND #20 IS INFUSING NS @ 100ML/HR WITHOUT REDNESS OR SWELLING. PT CONTINUING TO REFUSE AM LAB DRAW AT THIS TIME. STATES "IT HURTS TOO MUCH". EDUCATION PROVIDED PT STILL STRONGLY REFUSING AM LAB DRAW. ASPIRATION PRECAUTIONS MAINTAINED. BED IS LOCKED AND IN LOWEST POSITION, SIDE RAILS UP X2, BED ALARM ON, CALL LIGHT AND POSSESSIONS WITHIN REACH. Addendum: 01/05/19 at 1120 by ALEX FOSTER RN ERROR, PT IS ALERT AND ORIENTED X4, TO NAME, YEAR, PLACE, AND EVENT.
--- NOTE | 2019-01-05 07:49 | NUR ---
MS RN NOTE PT STATES SHE FEELS VERY NAUSEOUS NO EPISODES OF EMESIS. ZOFRAN 4M IV ADMINISTERED ORDERED, PT MADE NPO FOR NOW.
[2019-01-05 08:00] VITALS: BP 145/75
[2019-01-05] MEDS: NEXIUM 40 MG VIAL IV SCH ×2 (08:14→21:06)
--- NOTE | 2019-01-05 09:00 | NUR ---
MS RN NOTE PT STILL REFUSING AM LABS, EDUCATION PROVIDED PT STILL STRONGLY REFUSING, HOSPITALIST AWARE
--- NOTE | 2019-01-05 09:55 | NUR ---
MS RN NOTE PER DAJUAN IN RADIOLOGY THEY WILL TAKE PATIENT DOWN FOR CT SOON THEY CAN.
--- NOTE | 2019-01-05 10:43 | NUR ---
MS RN NOTE RELAYED RESULTS OF CT OF ABD/PELVIS TO AND PRIMARY HOSPITALIST . RECEIVED ORDERS FROM TO INSERT NG TUBE TO INTERMITTENT SUCTION AND FOR SURGICAL CONSULT. PER HE WILL SEE THE PATIENT LATER TODAY. ORDERS VERIFIED VIA READ BACK AND CARRIED OUT.
--- NOTE | 2019-01-05 10:58 | NUR ---
MS RN NOTE SPOKE WITH EDSON FROM OFFICE, PROVIDED PT INFORMATION AND INFORMED THAT REQUESTED SURGICAL CONSULT. PER EDSON SHE WILL LET KNOW.
--- NOTE | 2019-01-05 11:08 | NUR ---
MS RN NOTE PT REFUSING TO CONSENT TO NG TUBE INSERTION AT THIS TIME. PT STATES SHE HAD IT BEFORE AND "IT HURTS AND THEM CAME OUT". SHE IS REFUSING NG TUBE INSERTION ORDERED AT THIS TIME, EDUCATION PROVIDED INCLUDING SERIOUS POTENTIAL RISKS AND PT IS STILL STRONGLY REFUSING AT THIS TIME.
--- NOTE | 2019-01-05 11:18 | NUR ---
MS RN NOTE PT STILL STRONGLY REFUSING TO CONSENT TO NG TUBE INSERTION, PT IS ALERT TO NAME, YEAR, PLACE, AND EVENT. PT STATES SHE DOES NOT WANT THE TUBE INSERTED AND WILL THINK ABOUT IT.
--- NOTE | 2019-01-05 11:22 | NUR ---
MS RN NOTE CALLED [facility] TO INQUIRE IF PT HAS FAMILY OR PERSON WHO OVERSEES OR IS INVOLVED IN HER CARE, PER SECURITY SYSTEM SALES CONSULTANT TRADE FACILITATOR PLASTER HELPER MATTHIAS IS ABLE TO PROVIDE THAT INFORMATION, LEFT VOICEMAIL, AWAITING FOR CALL BACK.
--- NOTE | 2019-01-05 11:28 | NUR ---
MS RN NOTE INFORMED THAT AT THIS TIME PT STILL REFUSING NG TUBE INSERTION, WILL OFFER AGAIN LATER.
--- NOTE | 2019-01-05 11:43 | NUR ---
MS RN NOTE PER MATTHIAS FROM [facility], PT BROTHER MADDY IS THE DPOA, SHE WILL FAX LEGAL DOCUMENTATION SHORTLY, PROVIDED WITH UNIT FAX NUMBER.
--- NOTE | 2019-01-05 12:00 | NUR ---
MS RN NOTE SPOKE WITH ON THE PHONE INFORMED OF IMPRESSION FROM CT ABD/PELVIS AND REQUEST FOR SURGICAL CONSULT FROM , RECEIVED ORDERS FOR STAT SMALL BOWL FOLLOW THROUGH WITH 50/50 BARIUM AND WATER SOLUBLE CONTRAST. ORDERS VERIFIED VIA READ BACK AND CARRIED OUT.
[2019-01-05] MEDS: CEFEPIME 1 GM in IV D5W 50 ML IV SCH (12:20)
--- NOTE | 2019-01-05 14:30 | NUR ---
MS RN NOTE PT OFF UNIT FOR SMALL BOWEL FOLLOW THROUGH
--- NOTE | 2019-01-05 14:37 | NUR ---
MS RN NOTE ONLY RECEIVED FIRST PAGE OF DOCUMENTATION FROM [employer], CALLED MATTHIAS TO FOLLOW UP AND REQUEST FULL RECORD INCLUDING DPOA PAPERWORK, LEFT VOICEMAIL WITH UNIT FAX NUMBER AND CALL BACK NUMBER.
--- NOTE | 2019-01-05 15:30 | NUR ---
MS RN NOTE CAME FOR PSYCH EVAL BUT PT OFF UNIT FOR DIAGNOSTIC IMAGING, PER SHE WILL SEE THE PT TOMORROW.
[2019-01-05 16:00] VITALS: BP 150/73
--- NOTE | 2019-01-05 16:00 | NUR ---
MS RN NOTE PT BACK ON UNIT FROM SB FOLLOW THROUGH
[2019-01-05] MEDS: LORAZEPAM INJ 2 MG/ML VIAL IV PRN (17:21)
--- NOTE | 2019-01-05 17:21 | NUR ---
MS RN NOTE ATIVAN 1 MG IV ADMINISTERED ORDERED FOR ANXIETY AND PER PT REQUEST. BP 155/88, HR 72
--- NOTE | 2019-01-05 18:26 | NUR ---
MS RN CLOSING NOTE RECEIVED PT IN BED, ALERT AND ORIENTED X4, DENIES CHEST PAIN, SOB, HAS INTERMITTENT EPISODES OF NAUSEA WITHOUT EMESIS THROUGHOUT THE SHIFT. BREATHING IS EVEN AND UNLABORED ON 2L NC, NO ACUTE DISTRESS NOTED AT THIS TIME. RIGHT HAND #20 IS INFUSING NS @ 100ML/HR WITHOUT REDNESS OR SWELLING. ADLS PROVIDED AND PT ASSISTED TO TURN AND REPOSITION Q2H FOR THE DURATION OF THE SHIFT. NPO STATUS AND ASPIRATION PRECAUTIONS MAINTAINED. BED IS LOCKED AND IN LOWEST POSITION, SIDE RAILS UP X2, BED ALARM ON, CALL LIGHT AND POSSESSIONS WITHIN REACH. WILL ENDORSE TO HORN PLAYER NURSE FOR CONTINUITY OF CARE.
[2019-01-05] MEDS: METOCLOPRAMIDE HCL 10 MG/2 ML VIAL IV PRN (18:50)
--- NOTE | 2019-01-05 19:00 | NUR ---
MS RN NOTE RECEIVED PT IN STABLE CONDITION A/O X4, CURRENTLY IN BED RESTING. EASILY RESPONDS WHEN NAME IS CALLED. PT IS CURRENTLY NPO, WITH R HAND IV #[address] WITH IVF INFUSING. ALL CURRENT NEEDS ATTENDED TO. BED LOW, LOCKED, UPPER RAILS UP, AND CALL LIGHT WITHIN REACH. WILL CONT. TO MONITOR.
[2019-01-05 20:00] VITALS: BP 134/71
[2019-01-06] MEDS: ONDANSETRON HCL/PF 4 MG/2 ML VIAL IVP PRN ×2 (00:04→09:13)
[2019-01-06] MEDS: METOCLOPRAMIDE HCL 10 MG/2 ML VIAL IV PRN ×2 (04:42→12:22)
--- NOTE | 2019-01-06 06:19 | NUR ---
MS RN NOTE PT IN STABLE CONDITION A/O X4, CURRENTLY IN BED RESTING. EASILY RESPONDS WHEN NAME IS CALLED. PT IS CURRENTLY NPO, WITH R HAND IV #[address] WITH IVF INFUSING. ALL CURRENT NEEDS ATTENDED TO. BED LOW, LOCKED, UPPER RAILS UP, AND CALL LIGHT WITHIN REACH. WILL CONT. TO MONITOR AND ENDORSE TO NEXT SHIFT FOR FAMILIA.
--- NOTE | 2019-01-06 07:23 | NUR ---
MS RN OPENING NOTES PATIENT IN BED ALERT AND ORIENTED X4; AFEBRILE WITH NO S/S OF DISTRESS OBSERVED. BREATHING REGULAR AND UNLABORED WITH OXYGEN AT 2L/MIN VIA NASAL CANNULA. MAINTAINED ON NOTHING BY MOUTH. SKIN REMAINED INTACT. IV LINE ON RIGHT HAND G22 INTACT AND PATENT; INFUSING WELL.LAB CAME IN FOR AM BLOOD WORKS BUT SHE REFUSED. RISK AND BENEFITS EXPLAINED BUT STILL VERBALIZED REFUSAL SAYING "IT HURTS TOO BAD". KEPT CLEAN AND DRY. REPOSITIONED EVERY 2HRS. CONTINUOUSLY MONITORED.
[2019-01-06 08:00] VITALS: BP 126/72
--- NOTE | 2019-01-06 08:35 | NUR ---
MS RN NOTES CALLED, ASKED FOR THE SMALL BOWEL XRAY RESULT WITH NO RESULTS YET, ORDERED STAT KUB PORTABLE NOTED AND CARRIED OUT.
[2019-01-06] MEDS: NEXIUM 40 MG VIAL IV SCH ×2 (09:14→21:47)
[2019-01-06] MEDS: CEFEPIME 1 GM in IV D5W 50 ML IV SCH (12:16)
[2019-01-06] MEDS: IV NS 0.9% 1,000 ML IV PRN (12:22)
[2019-01-06 12:52] LABS: BASOPHILS % (AUTO) 0.2 % (0.0-2.0); EOSINOPHILS % (AUTO) 0.5 % (0.0-6.0); HEMATOCRIT 31 % (33-45); HEMOGLOBIN 10.5 g/dL (11.5-14.8); LYMPHOCYTES # (AUTO) 0.5 /CMM (0.8-4.8); LYMPHOCYTES % (AUTO) 9.5 % (20.0-44.0); MEAN CORPUSCULAR HGB CONC 34 g/dl (31.0-36.0); MEAN CORPUSCULAR VOLUME 92 fL (82-100); MONOCYTES # (AUTO) 0.3 /CMM (0.1-1.30); MONOCYTES % (AUTO) 6.7 % (2.0-12.0); NEUTROPHILS # (AUTO) 4.2 /CMM (1.8-8.9); NEUTROPHILS % (AUTO) 83.1 % (43.0-81.0); PLATELET COUNT (AUTO) 121 /CMM (150-450); RED BLOOD CELL COUNT(AUTO) 3.35 MIL/uL (4.0-5.2); WHITE BLOOD COUNT (AUTO) 5.1 K/uL (4.3-11.0)
[2019-01-06 14:35] LABS: CALCIUM, SERUM 8.3 mg/dL (8.5-10.1); CREATININE 0.9 mg/dL (0.6-1.3)
[2019-01-06 14:40] LABS: MAGNESIUM 1.1 mg/dL (1.8-2.4)
--- NOTE | 2019-01-06 14:47 | NUR ---
MS RN NOTE INFORMED OF MG LEVEL 1.1 RECEIVED ORDERS FOR IV MG SULFATE 2G NOW. VERIFIED VIA READ BACK AND CARRIED OUT
[2019-01-06] MEDS: Magnesium 1GM/D5W 100ML PREMIX 100 ML IV SCH ×2 (14:59→16:08)
[2019-01-06] MEDS ORDERED: Magnesium 1GM/D5W 100ML PREMIX PIGGYBACK IV ONE (15:00)
[2019-01-06 16:00] VITALS: BP 149/58
--- NOTE | 2019-01-06 18:30 | NUR ---
MS LIVESTOCK TRUCKER DOCUMENTATION NOTE ABLE TO TAKE DISCHARGE PHOTO EXCEPT LEFT ARM DUE TO BEING IN SLING WITH ORDERS BY MD NOT TO REMOVE.
--- NOTE | 2019-01-06 18:47 | NUR ---
MS RN CLOSING NOTES PATIENT IN BED ALERT AND ORIENTED X4; AFEBRILE WITH NO S/S OF DISTRESS OBSERVED. BREATHING REGULAR AND UNLABORED WITH OXYGEN AT 2L/MIN VIA NASAL CANNULA. STARTED ON CLEAR LIQUIDS DIET, TOLERATING WELL WITH NO S/S OF ASPIRATION NOTED, NO COMPLAINTS OF NAUSEA/VOMITING REPORTED OF THE TIME. S/P RIGHT UPPER ARM MIDLINE INSERTION, INTACT AND PATENT; INFUSING WELL. S/P MAGNESIUM 2GM IV FOR CRITICALLY LOW MAGNESIUM LEVEL. NO EPISODE OF ANXIETY NOTED WITHIN THE SHIFT. KEPT CLEAN AND DRY. REPOSITIONED EVERY 2HRS. WILL ENDORSE TO NOC SHIFT CONTINUITY OF CARE.
--- NOTE | 2019-01-06 19:10 | NUR ---
MS RN NOTES RECEIVED PT IN BED ASLEEP BUT EASILY AWOKEN VERBALLY OR BY TOUCH. PT A/O X3 AND ABLE TO MAKE NEEDS KNOWN. RESPIRATIONS EVEN AND UNLABORED WITH NO S/S OF ACUTE DISTRESS OR SOB NOTED. PT ON 02 VIA NC @2L/MIN, TOLERATING WELL. NO COMPLAINTS OF PAIN AT THIS TIME. PT WITH NATASHA MIDLINE PATENT AND INTACT INFUSING NS @100ML/HR. SAFETY MEASURES IN PLACE WITH BED IN LOWEST LOCKED POSITION WITH SIDE RAILS UP X2. CALL LIGHT WITHIN REACH. WILL CONTINUE TO MONITOR.
[2019-01-06 20:56] VITALS: BP 134/70
[2019-01-06] MEDS: MIRTAZAPINE 15 MG TABLET PO SCH (21:47)
[2019-01-07] MEDS: IV NS 0.9% 1,000 ML IV PRN ×2 (02:35→13:21)
[2019-01-07 07:12] LABS: BASOPHILS % (AUTO) 0.6 % (0.0-2.0); EOSINOPHILS % (AUTO) 2.1 % (0.0-6.0); HEMATOCRIT 32 % (33-45); HEMOGLOBIN 10.7 g/dL (11.5-14.8); LYMPHOCYTES # (AUTO) 0.6 /CMM (0.8-4.8); LYMPHOCYTES % (AUTO) 11.7 % (20.0-44.0); MEAN CORPUSCULAR HGB CONC 34 g/dl (31.0-36.0); MEAN CORPUSCULAR VOLUME 92 fL (82-100); MONOCYTES # (AUTO) 0.5 /CMM (0.1-1.30); MONOCYTES % (AUTO) 9.5 % (2.0-12.0); NEUTROPHILS # (AUTO) 4.2 /CMM (1.8-8.9); NEUTROPHILS % (AUTO) 76.1 % (43.0-81.0); PLATELET COUNT (AUTO) 136 /CMM (150-450); RED BLOOD CELL COUNT(AUTO) 3.42 MIL/uL (4.0-5.2); WHITE BLOOD COUNT (AUTO) 5.5 K/uL (4.3-11.0)
[2019-01-07 07:36] LABS: CALCIUM, SERUM 8.5 mg/dL (8.5-10.1); CREATININE 0.9 mg/dL (0.6-1.3); POTASSIUM 3.5 mmol/L (3.5-5.1)
--- NOTE | 2019-01-07 07:47 | NUR ---
MS RN NOTES PT IN BED AWAKE AND ABLE TO MAKE NEEDS KNOWN. PT A/O X3. RESPIRATIONS EVEN AND UNLABORED WITH NO S/S OF ACUTE DISTRESS OR SOB NOTED THROUGHOUT SHIFT. PT KEPT CLEAN, DRY, AND COMFORTABLE. PT TURNED Q2 HRS. PT ON 02 VIA NC @2L/MIN, TOLERATING WELL. NO COMPLAINTS OF PAIN AT THIS TIME. PT WITH NATASHA MIDLINE PATENT AND INTACT INFUSING NS @100ML/HR. SAFETY MEASURES IN PLACE WITH BED IN LOWEST LOCKED POSITION WITH SIDE RAILS UP X2. CALL LIGHT WITHIN REACH. WILL ENDORSE TO ONCOMING NURSE FOR FAMILIA.
--- NOTE | 2019-01-07 07:49 | NUR ---
RN MS OPENING NOTES Patient received on room air, no sob noted, patient denies pain at this time. Patient remains on diaper, skin intact, and is on clear liquid diet now. NATASHA midline NS @ 100 ml per hour. Bed at the lowest setting, call light within reach.
[2019-01-07 08:27] VITALS: BP 138/65
[2019-01-07] MEDS: NEXIUM 40 MG VIAL IV SCH (08:30)
[2019-01-07] MEDS: HYDROCODONE/APAP 5/325MG 1 EACH TABLET PO PRN ×2 (08:38→16:02)
[2019-01-07] MEDS ORDERED: CEFEPIME 2 GM in IV D5W 100 ML IV SCH (11:30)
[2019-01-07] MEDS: CEFEPIME 2 GM in IV D5W 100 ML IV SCH (12:23)
[2019-01-07 16:12] VITALS: BP 144/71
--- NOTE | 2019-01-07 18:23 | NUR ---
RN MS CLOSING NOTES Patient remains on 2L nasal cannula, no sob noted, Patient's vital signs stable all shift, patient denies pain at this time. Patient refused PT today. NATASHA midline, NS @ 100 mL per hour. Bed at the lowest setting, call light within reach. Will give report to NOC RN for FAMILIA.
--- NOTE | 2019-01-07 19:45 | NUR ---
MS RN NOTES RECEIVED ON BED A/O X3,BREATHING REGULAR,NOT IN ANT FORM OF DISTRESS.IVF NS AT 100ML/HR RATE INFUSING VIA IV PUMP,SITE PATENT ON RIGHT UPPER ARM MIDLINE.DVT PUMP IN USED FOR DVT PROHYLAXIS.CALL LIGHT IN REACH,NEEDS ANTICIPATED.
[2019-01-07 20:00] VITALS: BP 117/65
[2019-01-07] MEDS: MIRTAZAPINE 15 MG TABLET PO SCH (21:49)
--- NOTE | 2019-01-07 22:48 | NUR ---
MS RN NOTES C/O INSOMNIA,RESTORIL 7.5MG,1 CAPSULE PO GIVEN
[2019-01-07] MEDS ORDERED: TEMAZEPAM 7.5 MG CAPSULE PO PRN (23:00)
[2019-01-08] MEDS: CEFEPIME 2 GM in IV D5W 100 ML IV SCH ×2 (00:49→12:00)
[2019-01-08] MEDS: HYDROCODONE/APAP 5/325MG 1 EACH TABLET PO PRN (04:23)
--- NOTE | 2019-01-08 04:23 | NUR ---
MS RN NOTES C/O MID UPPER BACK PAIN 7/10 ON PAIN SCALE.NORCO 5/325MG.1 TAB PO GIVEN ORDERED FOR MODERATE PAIN
[2019-01-08] MEDS: ONDANSETRON HCL/PF 4 MG/2 ML VIAL IVP PRN (04:34)
--- NOTE | 2019-01-08 04:34 | NUR ---
MS RN NOTES FEELING NAUSEATED,ZOFRAN 4MG IV GIVEN ORDERED.
--- NOTE | 2019-01-08 06:41 | NUR ---
MS RN NOTES AWAKE,WIND TURBINE TECHNICIAN AT BEDSIDE FOR BLOOD DRAW.UNABLE TO DRAW BLOOD ON MIDLINE.REFUSED TO BE POKE.PAIN MANAGEMENT EFFECTIVE,REPOSITION PER PROTOCOL.CALL LIGHT IN REACH,NEEDS ATTENDED.WILL ENDORSE TO DAY NURSE FOR FAMILIA.
--- NOTE | 2019-01-08 07:15 | NUR ---
RN OPENING NOTE PT WAS RECEIVED IN BED AT LOWEST AND LOCKED POSITION WITH SIDE RAILS UP X2, A/O X3 BREATHING EVEN AND UNLABORED ON 2L, NO S/S OF ANY DISTRESS OR PAIN NOTED AT THIS TIME, IV IS PATENT AND INTACT, PT REFUSED LAB DRAW THIS AM PER NIGHT RN UNABLE TO DRAW BLOOD FROM MIDLINE AND REFUSED TO BE POKE, CURRENTLY ON CLEAR LIQUIDS FOR RESOLVING SBO, SAFETY PRECAUTIONS IN PLACE, CALL LIGHT WITHIN REACH, WILL MONITOR PT ACCORDINGLY
[2019-01-08 08:00] VITALS: BP 133/70
[2019-01-08] MEDS ORDERED: NEXIUM 40 MG VIAL IV SCH (09:00)
--- NOTE | 2019-01-08 09:35 | NUR ---
RN NOTE PT REFUSING TO WEAR NC AT THIS TIME STATING SHE DOES NOT NEED IT, O2 SAT TAKEN AND NOTED TO BE 97% ON RA, WILL MONITOR ACCORDINGLY
[2019-01-08] MEDS: IV NS 0.9% 1,000 ML IV PRN (09:49)
[2019-01-08] MEDS: LORAZEPAM INJ 2 MG/ML VIAL IV PRN (14:56)
--- NOTE | 2019-01-08 15:24 | NUR ---
DISCHARGE NOTE PT WAS D/C AT THIS TIME IN MEDICALLY STABLE CONDITION BACK TO THE [facility] WITH EMT CREW. ALL D/C PAPERWORK, EXITCARE, AND BELONGING LIST WERE SIGNED, DISCUSSED, AND HANDED TO THE PT AND EMT CREW. PRESCRIPTION WAS HANDED WITH PAPERWORK WELL ALL OF HER BELONGINGS. IV AND ID BAND WERE REMOVED. SKIN WAS NOTED TO BE DRY AND INTACT. REPORT WAS GIVEN TO OJ AT THE [facility] REGARDING PT ARRIVAL. ALL NEEDS WERE ATTENDED TO DURING HER STAY. PT LEFT AT THIS TIME WITH EMT CREW IN MEDICALLY STABLE CONDITION.
== END 2019-01-08 15:21 | DRG 388 ==
LOC: ER 11:48 → TELE 14:14 → MED 14:21
PROVIDERS: ADMIT Nurse Practitioner Acute Care; ATTEND Nurse Practitioner Acute Care
PROC: 05H533Z Insertion of Infusion Device into Right Subclavian Vein, Percutaneous Approach (ICD-10-PCS; principal; 2019-01-06)
PROC: B546ZZA Ultrasonography of Right Subclavian Vein, Guidance (ICD-10-PCS; 2019-01-06)
DX: K56.600 Partial intestinal obstruction, unspecified as to cause (principal); J15.9 Unspecified bacterial pneumonia; N17.0 Acute kidney failure with tubular necrosis; G93.41 Metabolic encephalopathy; D68.59 Other primary thrombophilia; E87.2 Acidosis; F33.2 Major depressive disorder, recurrent severe without psychotic features; E86.0 Dehydration; E83.42 Hypomagnesemia; E83.52 Hypercalcemia; F03.90 Unspecified dementia, unspecified severity, without behavioral disturbance, psychotic disturbance, mood disturbance, and anxiety; F41.9 Anxiety disorder, unspecified; I10 Essential (primary) hypertension; K21.9 Gastro-esophageal reflux disease without esophagitis; Z86.73 Personal history of transient ischemic attack (TIA), and cerebral infarction without residual deficits; E78.5 Hyperlipidemia, unspecified; Z91.19 Patient's noncompliance with other medical treatment and regimen; Z90.710 Acquired absence of both cervix and uterus; Z79.82 Long term (current) use of aspirin; D72.829 Elevated white blood cell count, unspecified
CPT/HCPCS: 36415; 71045-TC; 74018; 74250-TC; 80048-TC; 80076-TC; 81000-TC; 83605-TC; 83690-TC; 83735-TC; 83880; 84100-TC; 84484-TC; 85025-TC; 87040-TC; 87081-TC; 87086-TC; 94799-TC; 97110-TC; 97112-TC; 97530-TC; 97535-TC; G0378; J0692; J2060; J2405; J2765; J3370; J3475; J7030; J7040; J7060

== ENCOUNTER 2019-08-13 01:00 | Inpatient (IN) | payer MEDICARE, BC ==
[~2019-08-13] VITALS: Ht 165.1 cm; Wt 97.1 kg
[~2019-08-13 01:00] MED LIST changes: +ATOR40TA PO; +BENZ-13 PO; +BISM262T14 PO; +BUPR-319 PO; -BUPR300T54 PO; -CHOL200026 PO; +CLON0.1T PO; +LOSA1TAB39 PO; -MUPI1OIN BNOSTRILS; +NA P133E RC; -NAPH15DR EACHEYE; -NITR100C PO; -OMEP20CA11 PO; +OMEP20CA15 PO; +TEMA15CA PO
--- NOTE | 2019-08-13 01:06 | NUR ---
ROBB Witt FROM [facility] C/O NAUSEA AND VOMITING, ABDOMINAL PAIN FOR 3 DAYS, PT IS AAOX3, NOT IN RESPIRATORY DISTRESS, HOOKED TO BUDGET AND POLICY ANALYST, KEPT RESTED AND COMFORTABLE, WILL CONTINUE TO MONITOR.
[2019-08-13] MEDS ORDERED: ONDANSETRON HCL/PF 4 MG/2 ML VIAL ONE (01:07)
[2019-08-13] MEDS ORDERED: MORPHINE SULFATE INJ 4 MG/ML DISP.SYRIN ONE (01:08)
--- NOTE | 2019-08-13 01:10 | NUR ---
SEEN AND EXAMINED BY .
--- NOTE | 2019-08-13 01:25 | NUR ---
IV LINE ESTABLISHED, BLOOD DRAWN AND SENT TO LAB.
[2019-08-13] MEDS ORDERED: ONDANSETRON HCL/PF 4 MG/2 ML VIAL IVP ONE (01:30)
[2019-08-13] MEDS ORDERED: MORPHINE SULFATE INJ 2 MG/ML DISP.SYRIN IV ONE (01:30)
[2019-08-13 01:37] LABS: BASOPHILS % (AUTO) 0.3 % (0.0-2.0); EOSINOPHILS % (AUTO) 0.1 % (0.0-6.0); HEMATOCRIT 44 % (33-45); HEMOGLOBIN 14.2 g/dL (11.5-14.8); LYMPHOCYTES # (AUTO) 0.7 /CMM (0.8-4.8); LYMPHOCYTES % (AUTO) 6.1 % (20.0-44.0); MEAN CORPUSCULAR HGB CONC 33 g/dl (31.0-36.0); MEAN CORPUSCULAR VOLUME 91 fL (82-100); MONOCYTES # (AUTO) 0.8 /CMM (0.1-1.30); MONOCYTES % (AUTO) 7.1 % (2.0-12.0); NEUTROPHILS # (AUTO) 10.4 /CMM (1.8-8.9); NEUTROPHILS % (AUTO) 86.4 % (43.0-81.0); PLATELET COUNT (AUTO) 292 /CMM (150-450); RED BLOOD CELL COUNT(AUTO) 4.76 MIL/uL (4.0-5.2)
[2019-08-13 01:45] LABS: CARBON DIOXIDE 26 mmol/L (21-32); CHLORIDE 101 mmol/L (98-107); CREATININE 3.6 mg/dL (0.6-1.3); GLUCOSE 141 mg/dL (74-106); POTASSIUM 3.8 mmol/L (3.5-5.1); SODIUM SERUM 140 mmol/L (136-145); UREA NITROGEN, BLOOD 74 mg/dL (7-18)
[2019-08-13 01:51] LABS: ALANINE AMINOTRANSFERASE 29 U/L (12-78); ALBUMIN 3.3 g/dL (3.4-5.0); ALKALINE PHOSPHATASE 100 U/L (46-116); ASPARTATE AMINOTRANSFERASE 15 U/L (15-37); BILIRUBIN,DIRECT 0.1 mg/dL (0.0-0.2); BILIRUBIN,TOTAL 0.5 mg/dL (0.2-1.0); LIPASE 94 U/L (73-393)
[2019-08-13 02:08] LABS: CALCIUM, SERUM 9.5 mg/dL (8.5-10.1)
[2019-08-13] MEDS ORDERED: IV NS 0.9% 1,000 ML IV STA (02:33)
[2019-08-13] MEDS ORDERED: IV NS 0.9% 1,000 ML IV PRN ×2 (03:00→04:25)
[2019-08-13] MEDS ORDERED: AZITHROMYCIN 500 MG in IV D5W 250 ML IV ONE (03:30)
[2019-08-13] MEDS ORDERED: AZITHROMYCIN 500 MG VIAL ONE (03:42)
--- NOTE | 2019-08-13 03:52 | NUR ---
MEDHAT MEADE PAGED PER SUSY AVALOS ORDER.
--- NOTE | 2019-08-13 04:07 | NUR ---
ER TALKING TO MEDHAT MEADE REGARDING PT ADMISSION.
[2019-08-13] MEDS ORDERED: ACETAMINOPHEN 325 MG TABLET PO PRN (04:30)
[2019-08-13] MEDS ORDERED: Z GUARD REMEDY 2 OZ OINT TP PRN (04:30)
[2019-08-13] MEDS ORDERED: MAGNESIUM HYDROXIDE 30 ML UDC PO PRN (04:30)
[2019-08-13] MEDS ORDERED: MAG HYDROX/AL HYDROX/SIMETH 30 ML UDC PO PRN (04:30)
[2019-08-13] MEDS ORDERED: ONDANSETRON HCL/PF 4 MG/2 ML VIAL IVP PRN (04:30)
[2019-08-13] MEDS ORDERED: HYDROCODONE/APAP 5/325MG 1 EACH TABLET PO PRN (04:30)
[2019-08-13] MEDS ORDERED: MIRT15TA7 PO (04:42)
[2019-08-13] MEDS ORDERED: DOCU-141 PO (04:42)
[2019-08-13] MEDS ORDERED: FAMO20TA8 PO (04:42)
[2019-08-13] MEDS ORDERED: LOSA100T31 PO (04:42)
[2019-08-13] MEDS ORDERED: HYDR25TA4 PO (04:42)
--- NOTE | 2019-08-13 04:42 | NUR ---
REPORT GIVEN TO YONI HEARN FOR FAMILIA
--- NOTE | 2019-08-13 04:44 | NUR ---
PT TRANSFERED PER ACLS PROTOCOL.
[2019-08-13 05:00] VITALS: BP 108/62
--- NOTE | 2019-08-13 05:00 | NUR ---
PRACTICAL MINISTRIES PROFESSOR ADMITTING NOTES RECEIVED PATIENT FROM ER SAFELY TRANSFERRED TO BED , AWAKE ALERT AND ORIENTED X4, ABLE TO MAKE NEEDS, KNOWN RESPIRATIONS EVEN AND UNLABORED WITH EQUAL RISE AND FALL OF CHEST, ON 2 L VIA NC TOLERATING WELL, IV SITE TO RIGHT HAND #20 G AND LEFT WRIST #20 G INTACT AND PATENT, NO REDNESS, NO INFILTRATION PRESENT, ORIENTED TO STAFF AND CALL LIGHT AND KEPT WITHIN REACH, NPO DX AT THIS TIME, DROPLET PRECAUTIONS FOR R/O COVID , ADMITTING DX SBO AT THIS TIME, REMAINS FREE OF PAIN OR DISCOMFORT NO N/V PRESENT, PATIENT SKIN ASSESSED INTACT, BELONGINGS LIST DONE, SAFETY PRECAUTIONS IN PLACE, LOW BED AND LOCKED, WILL CONTINUE TO MONITOR AND ATTEND TO NEEDS.
[2019-08-13] MEDS ORDERED: CEFTRIAXONE 1 G VIAL ONE (05:31)
[2019-08-13] MEDS: CEFTRIAXONE 1 G in IV D5W 50 ML IV SCH (05:33)
--- NOTE | 2019-08-13 06:41 | NUR ---
ROLLER VARNISHER CLOSING NOTES PATIENT ALERT AND ORIENTED X4, ABLE TO MAKE NEEDS, KNOWN RESPIRATIONS EVEN AND UNLABORED WITH EQUAL RISE AND FALL OF CHEST, ON 2 L VIA NC TOLERATING WELL, IV SITE TO RIGHT HAND #20 G AND LEFT WRIST #20 G INTACT AND PATENT, NO REDNESS, NO INFILTRATION PRESENT, IVF RUNNING ORDERED, ABX GIVEN ORDERED, CALL LIGHT KEPT WITHIN REACH, NPO DX AT THIS TIME, DROPLET PRECAUTIONS FOR R/O COVID , ADMITTING DX SBO AT THIS TIME, REMAINS FREE OF PAIN OR DISCOMFORT NO N/V PRESENT, PATIENT SKIN ASSESSED INTACT SAFETY PRECAUTIONS IN PLACE, LOW BED AND LOCKED, BED ALARM IN PLACE, WILL CONTINUE TO MONITOR AND ATTEND TO NEEDS AND ENDORSE TO NEXT SHIFT, NO CHANGES SINCE ADMITTED TO THE FLOOR.
[2019-08-13 08:00] VITALS: BP_SYST 106; BP_DIAS 52; BP_DIAS 65
--- NOTE | 2019-08-13 11:00 | NUR ---
Marie cates with patient's brother from [place] , Neri Gamez ([phone]) . Updated with plan of care
--- NOTE | 2019-08-13 11:26 | NUR ---
Received order from Dr. Sands to insert NG tube for suctioning. Paged dr. Phillips for clarification : per dr. Phillips slow continues suctioning.
[2019-08-13 12:00] VITALS: BP 134/68
--- NOTE | 2019-08-13 12:55 | NUR ---
Patient seen by dr. Phillips ; Dr. Phillips discussed with the patient plan of care. Patient refused NG tube insertion. Education provided and procedure explained : patient strongly refused. Per patient she had it twice in other hospital and its not helping . Will continue encourage patient.
--- NOTE | 2019-08-13 13:35 | NUR ---
spoke with the patient about NG -tube insertion; patient still refusing g. Education provided .
--- NOTE | 2019-08-13 15:03 | NUR ---
patient still refusing NG_tube. DR> Alonzo pending consultation. PAtient denies pain , IV fluid running as ordered, on TELE ST 109
[2019-08-13 16:00] VITALS: BP 125/70
--- NOTE | 2019-08-13 16:00 | NUR ---
PAtient alert and oriented x4.Patient refused Small bowel follow-through study. Education provided; patient still refusing procedure
[2019-08-13] MEDS: IV NS 0.9% 1,000 ML IV PRN (18:22)
--- NOTE | 2019-08-13 18:50 | NUR ---
Patient resting on bed, alert and oriented x2-3 . Patient denies pain , no N/V noted. Patient uncooperative and refusing treatment and care . Patient remains NPO status. All needs attended, patient kept clean and comfortable. Safety precautions in place , bed alarm activated, call light within reach. IV line intact and patent and IV fluid running as ordered . Will endorse to next shift for FAMILIA
--- NOTE | 2019-08-13 19:20 | NUR ---
RN OPENING NOTES RECEIVED PATIENT RESTING IN BED, EASILY AROUSABLE. A/OX3. NO SIGNS OF DISTRESS OR DISCOMFORT. BREATHING EVEN AND UNLABORED. ON TELE MONITOR WITH ST 104 NOTED. IV ACCESS IN L WRIST AND R HAND WITH NS INFUSING, PATENT AND INTACT, NO SIGNS OF REDNESS OR INFILTRATION. PATIENT STILL REFUSING NG TUBE INSERTION AND SBFT. BED IN LOW LOCKED POSITION WITH SIDE RAILS X2. CALL LIGHT WITHIN REACH. WILL CONTINUE TO MONITOR.
[2019-08-13 20:00] VITALS: BP 135/76
[2019-08-13 20:05] VITALS: BP 135/76
[2019-08-14] VITALS (8 sets, daily range): BP systolic 128–156; BP diastolic 68–87
[2019-08-14] MEDS: AZITHROMYCIN 500 MG in IV D5W 250 ML IV SCH (03:56)
[2019-08-14] MEDS ORDERED: MORPHINE SULFATE INJ 2 MG/ML DISP.SYRIN IV ONE (04:30)
[2019-08-14] MEDS: CEFTRIAXONE 1 G in IV D5W 50 ML IV SCH (05:33)
[2019-08-14] MEDS: IV NS 0.9% 1,000 ML IV PRN ×2 (05:34→17:42)
[2019-08-14 06:27] LABS: BASOPHILS % (AUTO) 0.3 % (0.0-2.0); EOSINOPHILS % (AUTO) 4.7 % (0.0-6.0); HEMATOCRIT 34 % (33-45); HEMOGLOBIN 11.1 g/dL (11.5-14.8); LYMPHOCYTES # (AUTO) 0.7 /CMM (0.8-4.8); LYMPHOCYTES % (AUTO) 18.7 % (20.0-44.0); MEAN CORPUSCULAR HGB CONC 33 g/dl (31.0-36.0); MEAN CORPUSCULAR VOLUME 92 fL (82-100); MONOCYTES # (AUTO) 0.4 /CMM (0.1-1.30); MONOCYTES % (AUTO) 10.2 % (2.0-12.0); NEUTROPHILS # (AUTO) 2.3 /CMM (1.8-8.9); NEUTROPHILS % (AUTO) 66.1 % (43.0-81.0); PLATELET COUNT (AUTO) 149 /CMM (150-450); RED BLOOD CELL COUNT(AUTO) 3.73 MIL/uL (4.0-5.2); WHITE BLOOD COUNT (AUTO) 3.5 K/uL (4.3-11.0)
[2019-08-14 06:37] LABS: ALANINE AMINOTRANSFERASE 23 U/L (12-78); ALBUMIN 2.4 g/dL (3.4-5.0); ALKALINE PHOSPHATASE 63 U/L (46-116); ASPARTATE AMINOTRANSFERASE 11 U/L (15-37); BILIRUBIN,TOTAL 0.3 mg/dL (0.2-1.0); CALCIUM, SERUM 8.4 mg/dL (8.5-10.1); CARBON DIOXIDE 28 mmol/L (21-32); CHLORIDE 107 mmol/L (98-107); CREATININE 1.8 mg/dL (0.6-1.3); GLUCOSE 98 mg/dL (74-106); MAGNESIUM 1.6 mg/dL (1.8-2.4); PHOSPHORUS 2.2 mg/dL (2.5-4.9); SODIUM SERUM 143 mmol/L (136-145); TOTAL PROTEIN, SERUM 5.4 g/dL (6.4-8.2); UREA NITROGEN, BLOOD 42 mg/dL (7-18)
[2019-08-14 06:45] LABS: CHOLESTEROL 98 mg/dL (<200); HDL CHOLESTEROL 44 mg/dL (40-60); LDL 37 mg/dL (0-99); THYROID STIMULATING HORMONE 1.395 uIU/mL (0.358-3.74); TRIGLYCERIDES 119 mg/dL (30-150)
--- NOTE | 2019-08-14 07:13 | NUR ---
RN CLOSING NOTES PATIENT RESTING IN BED, EASILY AROUSABLE. A/OX3. NO SIGNS OF DISTRESS OR DISCOMFORT. BREATHING EVEN AND UNLABORED. ON TELE MONITOR WITH SR 89 NOTED. IV ACCESS IN L WRIST AND R HAND WITH NS INFUSING, PATENT AND INTACT, NO SIGNS OF REDNESS OR INFILTRATION. PATIENT STILL REFUSING NG TUBE INSERTION AND SBFT. ALL NEEDS MET. NO SIGNIFICANT CHANGES THROUGH THE NIGHT. PATIENT KEPT CLEAN DRY AND COMFORTABLE. ASSISTED WITH REPOSITIONING Q2H AND PRN. BED IN LOW LOCKED POSITION WITH SIDE RAILS X2. CALL LIGHT WITHIN REACH. WILL ENDORSE TO AM SHIFT FOR FAMILIA.
--- NOTE | 2019-08-14 07:30 | NUR ---
RETENTION MANAGER AM NOTES RECEIVED PATIENT RESTING IN BED, EASILY AROUSABLE. A/OX3. NO SIGNS OF DISTRESS OR DISCOMFORT. BREATHING EVEN AND UNLABORED. ON TELE MONITOR WITH SR HR 86. IV ACCESS IN L WRIST AND R HAND WITH NS INFUSING, PATENT AND INTACT, NO SIGNS OF REDNESS OR INFILTRATION. PATIENT STILL REFUSING NG TUBE INSERTION AND SBFT. BED IN LOW LOCKED POSITION WITH SIDE RAILS X2. CALL LIGHT WITHIN REACH. WILL CONTINUE TO MONITOR.
--- NOTE | 2019-08-14 09:30 | NUR ---
RN NOTES DUE MEDS GIVEN INFORMED DR. PATRICIA ABOUT PATIENT REFUSING ALL PROCEDURES AND THAT PATIENT STATED, SHE HAS NO PAIN ANYMORE.
[2019-08-14] MEDS ORDERED: ACET-73 PO (10:56)
[2019-08-14] MEDS ORDERED: FLUT1DIS IH (10:56)
[2019-08-14] MEDS ORDERED: AMLO5TAB4 PO (10:56)
[2019-08-14] MEDS ORDERED: ONDA4TAB11 PO (10:56)
[2019-08-14] MEDS ORDERED: DEXT15DR6 OP (10:56)
[2019-08-14] MEDS ORDERED: POLY17PO4 PO (10:56)
[2019-08-14] MEDS ORDERED: ESTR0.5T4 PO (10:56)
[2019-08-14] MEDS ORDERED: POTASSIUM CL. PREMIX PERIPHER. 50 ML IV SCH (11:02)
[2019-08-14] MEDS ORDERED: POTASSIUM PHOSPHATE MM 7.5 MMOL in IV NS 0.9% 100 ML IV SCH (11:30)
--- NOTE | 2019-08-14 11:30 | NUR ---
COLLABORATING SUPERVISING PHYSICIAN NOTES PER PATIENT, WANTS TO GO AMA, BROTHER MADDY CASILLAS [phone] SPOKE WITH PATIENT AND PER HIM PT ALSO REFUSES ALL PROCEDURES.
[2019-08-14] MEDS ORDERED: Magnesium 1GM/D5W 100ML PREMIX 100 ML IV SCH (11:37)
--- NOTE | 2019-08-14 14:20 | NUR ---
LICENSED PSYCHOLOGIST MANAGER NOTES PER DR. PATRICIA WILL KEEP PATIENT FOR ANOTHER NIGHT. AWAITING COVID TEST RESULT.
[2019-08-14] MEDS ORDERED: FLUTICASONE/SALMETEROL 1 DISK IH SCH (14:30)
[2019-08-14] MEDS ORDERED: TEMAZEPAM 15 MG CAPSULE PO PRN (14:30)
[2019-08-14] MEDS ORDERED: CLONIDINE HCL 0.1 MG TABLET PO PRN (14:30)
[2019-08-14] MEDS ORDERED: BENZONATATE 100 MG CAPSULE PO PRN (14:30)
[2019-08-14] MEDS ORDERED: LORAZEPAM 0.5 MG TABLET PO PRN (14:30)
[2019-08-14] MEDS ORDERED: NA PHOS,M-B/NA PHOS,DI-BA 1 EA ENEMA RC PRN (14:30)
[2019-08-14] MEDS: BUPROPION XL 150 MG TAB.ER.24 PO SCH (16:01)
[2019-08-14] MEDS: DOCUSATE SODIUM 100 MG CAPSULE PO SCH (16:11)
[2019-08-14] MEDS: FLUTICASONE/VILANTEROL 1 EACH BLST.W.DEV IH SCH (16:11)
[2019-08-14] MEDS: CLOTRIMAZOLE/BETAMETASONE DIPROPIONATE 15 GM TUBE TP SCH (16:11)
--- NOTE | 2019-08-14 18:07 | NUR ---
SEPTIC TANK SERVICE TECHNICIAN NOTES DR. PATRICIA NOTIFIED REGARDING PATIENT UNABLE TO TOLERATE IVF. PATIENT DRINKS TEA AND WATER. CRYING WHEN IVF IS TURNED ON. OKAY TO HOLD FLUID FOR NOW.
--- NOTE | 2019-08-14 19:37 | NUR ---
HEADING REPAIRER NOTES ALL NEEDS MET. PT RESTING COMFORTABLY. STILL REFUSING NGT AND SBO FOLLOW THROUGH. MD AWARE. NO OTHER SIGNIFICANT CHANGE IN CONDITION. FOR POSSIBLE DC IN THE MORNING. ENDORSED TO NEXT SHIFT FOR FAMILIA.
[2019-08-14] MEDS: GABAPENTIN 300 MG CAPSULE PO SCH (21:40)
[2019-08-14] MEDS: ATORVASTATIN 40 MG TABLET PO SCH (21:40)
[2019-08-14] MEDS: MIRTAZAPINE 15 MG TABLET PO SCH (21:40)
[2019-08-15] VITALS: BP 156/80
[2019-08-15 04:00] VITALS: BP 156/81
[2019-08-15] MEDS: CEFTRIAXONE 1 G in IV D5W 50 ML IV SCH ×2 (05:49→15:13)
[2019-08-15] MEDS: AZITHROMYCIN 500 MG in IV D5W 250 ML IV SCH (05:49)
[2019-08-15 06:28] LABS: BASOPHILS % (AUTO) 0.4 % (0.0-2.0); EOSINOPHILS % (AUTO) 3.6 % (0.0-6.0); HEMATOCRIT 37 % (33-45); HEMOGLOBIN 11.9 g/dL (11.5-14.8); LYMPHOCYTES # (AUTO) 0.8 /CMM (0.8-4.8); LYMPHOCYTES % (AUTO) 12.9 % (20.0-44.0); MEAN CORPUSCULAR HGB CONC 33 g/dl (31.0-36.0); MEAN CORPUSCULAR VOLUME 91 fL (82-100); MONOCYTES # (AUTO) 0.5 /CMM (0.1-1.30); MONOCYTES % (AUTO) 7.5 % (2.0-12.0); NEUTROPHILS # (AUTO) 4.7 /CMM (1.8-8.9); NEUTROPHILS % (AUTO) 75.6 % (43.0-81.0); PLATELET COUNT (AUTO) 174 /CMM (150-450); RED BLOOD CELL COUNT(AUTO) 4.01 MIL/uL (4.0-5.2); WHITE BLOOD COUNT (AUTO) 6.2 K/uL (4.3-11.0)
[2019-08-15 07:19] LABS: ALANINE AMINOTRANSFERASE 28 U/L (12-78); ALBUMIN 2.9 g/dL (3.4-5.0); ALKALINE PHOSPHATASE 75 U/L (46-116); ASPARTATE AMINOTRANSFERASE 15 U/L (15-37); BILIRUBIN,TOTAL 0.4 mg/dL (0.2-1.0); CALCIUM, SERUM 9.1 mg/dL (8.5-10.1); CARBON DIOXIDE 27 mmol/L (21-32); CHLORIDE 106 mmol/L (98-107); CREATININE 1.4 mg/dL (0.6-1.3); GLUCOSE 82 mg/dL (74-106); MAGNESIUM 1.6 mg/dL (1.8-2.4); PHOSPHORUS 1.9 mg/dL (2.5-4.9); POTASSIUM 3.3 mmol/L (3.5-5.1); SODIUM SERUM 142 mmol/L (136-145); TOTAL PROTEIN, SERUM 6.2 g/dL (6.4-8.2); UREA NITROGEN, BLOOD 26 mg/dL (7-18)
[2019-08-15 07:33] LABS: CREATINE KINASE, TOTAL 32 U/L (26-192)
[2019-08-15 08:00] VITALS: BP 152/74
[2019-08-15] MEDS: FAMOTIDINE (20 MG) 20 MG TABLET PO SCH (08:47)
[2019-08-15] MEDS: MEMANTINE HCL 5 MG TABLET PO SCH (08:48)
[2019-08-15] MEDS: HYDROCHLOROTHIAZIDE 25 MG TABLET PO SCH (08:48)
[2019-08-15] MEDS: DOCUSATE SODIUM 100 MG CAPSULE PO SCH ×2 (08:49→17:13)
[2019-08-15] MEDS: AMLODIPINE BESYLATE 5 MG TABLET PO SCH (08:49)
[2019-08-15] MEDS: LOSARTAN POTASSIUM 50 MG TABLET PO SCH (08:49)
[2019-08-15] MEDS: POLYETHYLENE GLYCOL 3350 17 GM POWD.PACK PO SCH (08:49)
[2019-08-15] MEDS: BUPROPION XL 150 MG TAB.ER.24 PO SCH (08:49)
[2019-08-15] MEDS: FLUTICASONE/VILANTEROL 1 EACH BLST.W.DEV IH SCH (09:16)
[2019-08-15] MEDS: CLOTRIMAZOLE/BETAMETASONE DIPROPIONATE 15 GM TUBE TP SCH ×2 (09:16→17:14)
[2019-08-15] MEDS: ASPIRIN EC 81 MG TABLET.DR PO SCH (09:17)
[2019-08-15] MEDS ORDERED: POTASSIUM PHOSPHATE MM 15 MMOL in IV NS 0.9% 250 ML IV SCH (10:30)
[2019-08-15 12:00] VITALS: BP 127/77
[2019-08-15] MEDS: Magnesium 1GM/D5W 100ML PREMIX 100 ML IV SCH ×2 (14:20→15:13)
[2019-08-15 16:00] VITALS: BP 140/69
[2019-08-15] MEDS: POTASSIUM PHOSPHATE MM 7.5 MMOL in IV NS 0.9% 100 ML IV SCH ×2 (16:12→18:57)
--- NOTE | 2019-08-15 19:10 | NUR ---
COMPLAINT SPECIALIST NOTES RECEIVED PT IN BED AWAKE AND ABLE TO MAKE NEEDS KNOWN. PT A/O X3. RESPIRATIONS EVEN AND UNLABORED WITH NO S/S OF ACUTE DISTRESS OR SOB NOTED. PT WITH IV ACCESS IN L WRIST AND R HAND WITH PATENT AND INTACT. NO COMPLAINTS OF PAIN AT THIS TIME. SAFETY MEASURES IN PLACE WITH BED IN LOWEST LOCKED POSITION WITH SIDE RAILS UP X2. CALL LIGHT WITHIN REACH. WILL CONTINUE TO MONITOR.
[2019-08-15 20:00] VITALS: BP 137/78
[2019-08-15] MEDS: GABAPENTIN 300 MG CAPSULE PO SCH (22:00)
[2019-08-15] MEDS: MIRTAZAPINE 15 MG TABLET PO SCH (22:00)
[2019-08-15] MEDS: ATORVASTATIN 40 MG TABLET PO SCH (22:00)
--- NOTE | 2019-08-15 22:58 | NUR ---
NATIONAL SALES ASSOCIATE NOTES 2200 MEDS NOT GIVEN. PT NPO FOR PROCEDURE. WILL CONTINUE TO MONITOR.
[2019-08-16] VITALS: BP 137/79
[2019-08-16 04:00] VITALS: BP 156/84
[2019-08-16] MEDS: CEFTRIAXONE 1 G in IV D5W 50 ML IV SCH (05:00)
--- NOTE | 2019-08-16 05:41 | NUR ---
DIRECTOR CLIENT NOTES MEDICATION NOT GIVEN. MED GIVEN AT 1513 ON 08/15/19. WILL FOLLOW UP WITH PHARMACY. WILL CONTINUE TO MONITOR.
[2019-08-16 06:18] LABS: BASOPHILS % (AUTO) 0.3 % (0.0-2.0); EOSINOPHILS % (AUTO) 2.4 % (0.0-6.0); HEMATOCRIT 36 % (33-45); HEMOGLOBIN 11.9 g/dL (11.5-14.8); LYMPHOCYTES # (AUTO) 0.7 /CMM (0.8-4.8); LYMPHOCYTES % (AUTO) 10.3 % (20.0-44.0); MEAN CORPUSCULAR HGB CONC 33 g/dl (31.0-36.0); MEAN CORPUSCULAR VOLUME 91 fL (82-100); MONOCYTES # (AUTO) 0.5 /CMM (0.1-1.30); MONOCYTES % (AUTO) 7.7 % (2.0-12.0); NEUTROPHILS # (AUTO) 5.2 /CMM (1.8-8.9); NEUTROPHILS % (AUTO) 79.3 % (43.0-81.0); PLATELET COUNT (AUTO) 175 /CMM (150-450); RED BLOOD CELL COUNT(AUTO) 3.96 MIL/uL (4.0-5.2); WHITE BLOOD COUNT (AUTO) 6.6 K/uL (4.3-11.0)
[2019-08-16 06:32] LABS: CALCIUM, SERUM 9.3 mg/dL (8.5-10.1); CREATININE 1.2 mg/dL (0.6-1.3); POTASSIUM 3.3 mmol/L (3.5-5.1)
--- NOTE | 2019-08-16 06:38 | NUR ---
HAM TRIMMER NOTES PT IN BED AWAKE AND RESTING. PT A/O X3 AND ABLE TO MAKE NEEDS KNOWN. RESPIRATIONS EVEN AND UNLABORED WITH NO S/S OF ACUTE DISTRESS OR SOB NOTED THROUGHOUT SHIFT. PT WITH IV ACCESS IN NATASHA MIDLINE PATENT AND INTACT. NO COMPLAINTS OF PAIN AT THIS TIME. PT KEPT CLEAN, DRY, AND COMFORTABLE. SAFETY MEASURES IN PLACE WITH BED IN LOWEST LOCKED POSITION WITH SIDE RAILS UP X2. CALL LIGHT WITHIN REACH. WILL ENDORSE TO ONCOMING NURSE FOR FAMILIA.
--- NOTE | 2019-08-16 07:33 | NUR ---
CALKER OPENING NOTES RECEIVED PATIENT IN BED SLEEPING COMFORTABLY. PATIENT IN NO ACUTE DISTRESS. NO SOB NOTED. PATIENT BREATHING IS EVEN AND UNLABORED. PATIENT ON CARDIAC MONITORING READING SINUS RHYTHM HR 94. PATIENT BED ALARM IS ON. SAFETY PRECAUTIONS IN PLACE. PATIENT BED IS LOCKED AND IN LOWEST POSITION. CALL LIGHT WITHIN REACH. WILL CONTINUE TO MONITOR.
[2019-08-16 08:00] VITALS: BP 137/75
[2019-08-16] MEDS: HYDROCHLOROTHIAZIDE 25 MG TABLET PO SCH (08:16)
[2019-08-16] MEDS: CLOTRIMAZOLE/BETAMETASONE DIPROPIONATE 15 GM TUBE TP SCH ×2 (08:16→16:37)
[2019-08-16] MEDS: FAMOTIDINE (20 MG) 20 MG TABLET PO SCH (08:16)
[2019-08-16] MEDS: DOCUSATE SODIUM 100 MG CAPSULE PO SCH ×2 (08:16→16:28)
[2019-08-16] MEDS: LOSARTAN POTASSIUM 50 MG TABLET PO SCH (08:17)
[2019-08-16] MEDS: AMLODIPINE BESYLATE 5 MG TABLET PO SCH (08:17)
[2019-08-16] MEDS: POLYETHYLENE GLYCOL 3350 17 GM POWD.PACK PO SCH (08:17)
[2019-08-16] MEDS: ASPIRIN EC 81 MG TABLET.DR PO SCH (08:17)
[2019-08-16] MEDS: FLUTICASONE/VILANTEROL 1 EACH BLST.W.DEV IH SCH (08:17)
[2019-08-16] MEDS: BUPROPION XL 150 MG TAB.ER.24 PO SCH (08:18)
[2019-08-16] MEDS: MEMANTINE HCL 5 MG TABLET PO SCH (08:18)
[2019-08-16] MEDS: IV NS 0.9% 1,000 ML IV PRN (08:27)
--- NOTE | 2019-08-16 09:00 | NUR ---
SUSAN HEARN NOTES MEDHAT MILTON NP SEEN AND EVALUATED PATIENT. OKAY TO RESUME REGULAR DIET AND IV FLUIDS PER MEDHAT. Addendum: 08/16/19 at 0946 by RAMON VASQUEZ RN CLARIFICATION OVER THE PHONE WITH MEDHAT, HE WILL LOOK OVER LABS AND DETERMINE IF IV FLUIDS ARE TO BE CONTINUED. WILL HOLD IVF AT THIS TIME.
[2019-08-16 10:07] LABS: *SPE ALBUMIN 2.7 g/dL (2.9-4.4); *SPE ALPHA-1-GLOBULIN 0.3 g/dL (0.0-0.4); *SPE BETA GLOBULIN 0.9 g/dL (0.7-1.3); *SPE GLOBULIN, TOTAL 2.8 g/dL (2.2-3.9); *SPE M-SPIKE 0.3 g/dL (Not Observed); *SPEGAMMA GLOBULIN 0.6 g/dL (0.4-1.8)
[2019-08-16] MEDS ORDERED: POTASSIUM CHLORIDE 20 MEQ TAB.PRT.SR PO SCH (10:30)
[2019-08-16] MEDS ORDERED: AZIT250T PO (10:41)
[2019-08-16] MEDS ORDERED: CEFU500T66 PO (10:41)
[2019-08-16 12:00] VITALS: BP 131/85
--- NOTE | 2019-08-16 13:27 | NUR ---
OIL AND GAS SUPERINTENDENT NOTE PATIENT REFUSING TO HAVE SKIN ASSESSMENT. PATIENT STATES " I JUST WANT TO REST, AND I DONT WANT TO HAVE MY SKIN CHECKED AND BOTHERED". EDUCATED RISKS VS BENEFITS. PATIENT CONTINUED TO REFUSE.
[2019-08-16] MEDS ORDERED: CEFTRIAXONE 1 G in IV D5W 50 ML IV SCH (15:00)
[2019-08-16 16:00] VITALS: BP 139/83
--- NOTE | 2019-08-16 19:03 | NUR ---
PRINCIPAL NETWORK ARCHITECTPACKAGING SALES REPRESENTATIVE NOTE PATIENT MEDICALLY CLEARED FOR DISCHARGE. PATIENT IN NO ACUTE DISTRESS. NO SOB NOTED. PATIENT BREATHING IS EVEN AND UNLABORED. DC INSTRUCTIONS PROVIDED, PATIENT VERBALIZED UNDERSTANDING. PATIENT SIGNED BELONGINGS LIST AND HAS BELONGINGS WITH HER. PATIENT REFUSED TO HAVE SKIN ASSESSMENT, DESPITE EXPLANATION OF RISKS VS BENEFITS. REMOVED PATIENT IV. REPORT GIVEN TO JUNAID HEARN AT [facility]. UPDATED BROTHER AND DAUGHTER ON PLAN OF CARE. PATIENT TURNED AND REPOSITIONED Q2H. PATIENT KEPT CLEAN, DRY AND COMFORTABLE THROUGHOUT SHIFT. NEEDS AND CONCERNS ADDRESSED. REPORT GIVEN TO STRANNER. PATIENT GOING BY KARLA BACK TO AMBULANCE GOING TO [facility]. MD AWARE OF DISCHARGE.
== END 2019-08-16 20:29 | DRG 388 ==
LOC: ER 01:02 → TELE1 04:00 → MEDSG1 08-16 08:43 → TELE1 08-16 10:04
PROVIDERS: ATTEND Nurse Practitioner Acute Care
PROC: 05HY33Z Insertion of Infusion Device into Upper Vein, Percutaneous Approach (ICD-10-PCS; principal; 2019-08-15)
DX: K56.600 Partial intestinal obstruction, unspecified as to cause (principal); N17.0 Acute kidney failure with tubular necrosis; J15.9 Unspecified bacterial pneumonia; K86.2 Cyst of pancreas; Z86.73 Personal history of transient ischemic attack (TIA), and cerebral infarction without residual deficits; E11.9 Type 2 diabetes mellitus without complications; N18.9 Chronic kidney disease, unspecified; E83.39 Other disorders of phosphorus metabolism; E83.42 Hypomagnesemia; E66.9 Obesity, unspecified; E78.5 Hyperlipidemia, unspecified; E86.0 Dehydration; E87.6 Hypokalemia; K44.9 Diaphragmatic hernia without obstruction or gangrene; N28.1 Cyst of kidney, acquired; F03.90 Unspecified dementia, unspecified severity, without behavioral disturbance, psychotic disturbance, mood disturbance, and anxiety; K21.9 Gastro-esophageal reflux disease without esophagitis; Z90.710 Acquired absence of both cervix and uterus; K76.0 Fatty (change of) liver, not elsewhere classified; K80.20 Calculus of gallbladder without cholecystitis without obstruction; I45.81 Long QT syndrome; I12.9 Hypertensive chronic kidney disease with stage 1 through stage 4 chronic kidney disease, or unspecified chronic kidney disease; Z68.35 Body mass index [BMI] 35.0-35.9, adult; K56.7 Ileus, unspecified; Z87.891 Personal history of nicotine dependence; Z79.82 Long term (current) use of aspirin; Z53.20 Procedure and treatment not carried out because of patient's decision for unspecified reasons; M79.2 Neuralgia and neuritis, unspecified
CPT/HCPCS: 36410; 36415; 71045-TC; 74018; 74250-TC; 80048-TC; 80053-TC; 80061-TC; 80076-TC; 82550-TC; 82728-TC; 83605-TC; 83615-TC; 83690-TC; 83735-TC; 83970; 84100-TC; 84155; 84165; 84443-TC; 85025-TC; 86140-TC; 87040-TC; 87081-TC; G0378; J0456; J0696; J2270; J2405; J3475; J3490; J7030; J7050; J7060